=== PATIENT | female | born 1995 | race Caucasian/White ===

== ENCOUNTER 2017-01-05 14:44 | Emergency (ER) | payer OTHER, MEDICAID ==
[~2017-01-05] VITALS: Ht 170.2 cm; Wt 65.0 kg
[~2017-01-05 14:44] MED LIST: ATEN-102 PO; CLOZ100 PO; EXEL4.6D TD; KLON2TAB PO; LEVO.025 PO; LINA290C PO; LOXA5 PO; METF-324 PO; OXYB5TAB10 PO; XANA0.5T PO
[2017-01-05 14:48] VITALS: BP 112/60; PULSE 74; RESP 18; TEMP 97.9; O2SAT 99
[2017-01-05] MEDS ORDERED: LINA290C PO (18:29)
[2017-01-05] MEDS ORDERED: METF1000 PO (18:29)
[2017-01-05] MEDS ORDERED: SYNT25TA PO (18:29)
[2017-01-05] MEDS ORDERED: KLON2TAB PO (18:29)
[2017-01-05] MEDS ORDERED: ATEN50TA PO (18:29)
[2017-01-05] MEDS ORDERED: RIVA9.5T T-DERMAL (18:29)
[2017-01-05] MEDS ORDERED: ALPR.5 PO (18:29)
[2017-01-05] MEDS ORDERED: CYTO5TAB PO (18:29)
[2017-01-05] MEDS ORDERED: LOXA50CA PO (18:29)
[2017-01-05] MEDS ORDERED: CLOZ100 PO (18:29)
[2017-01-05] MEDS ORDERED: FOLI1TAB4 PO (21:30)
== END 2017-01-05 16:27 | disposition left against medical advice (07) ==
LOC: NED 14:44
DX: R68.89 Other general symptoms and signs (principal)
CPT/HCPCS: 99281

== ENCOUNTER 2017-01-05 17:09 | Inpatient (IN) | payer OTHER, MEDICAID, MEDICARE ==
[~2017-01-05] VITALS: Ht 170.2 cm; Wt 51.9 kg
[2017-01-05 17:13] VITALS: BP_SYST 115; BP_SYST 127; BP_DIAS 68; BP_DIAS 77; PULSE 117; PULSE 98; RESP 20; TEMP 98.1; O2SAT 100
--- NOTE | 2017-01-05 17:30 | PD ---
HPI Chief Complaint: Psychiatric Symptoms Time Seen by Provider: 17:24 Travel History International Travel<30 days: No Contact w/Intl Traveler<30days: No Traveled to known affect area: No History of Present Illness HPI Patient's 21-year-old female presents emergency department on Núñez act for bizarre behavior. Patient states she has a history of schizophrenia. She states been taking her medicines. She denies any chest pain abdominal pain nausea vomiting shortness of breath. PFSH Past Medical History ADHD: No Blood Disorders: No Bipolar Disorder: Yes (OR BOARDERLINE PERSONALITY) Weight (Kg): 3 Anxiety: Yes Depression: Yes Heart Rhythm Problems: No High Cholesterol: No Chest Pain: Yes Congestive Heart Failure: No Diabetes: Yes Diminished Hearing: No Endocrine: No Genitourinary: No Hypertension: Yes Immune Disorder: Yes (LUPUS) Implanted Vascular Access Dvce: No Musculoskeletal: No Neurologic: No Psychiatric: Yes (Hx of treatment for Schizophrenia) Reproductive: No Respiratory: No Immunizations Current: Yes Migraines: No Schizophrenia: Yes Sleep Apnea: No Thyroid Disease: Yes Tetanus Vaccination: Unknown ?: Not : 0 Past Surgical History Appendectomy: No Cholecystectomy: No Ear Surgery: No Endocrine Surgery: No Eye Surgery: No Genitourinary Surgery: No Gynecologic Surgery: No Oral Surgery: Yes (TONSILLECTOMY) Tonsillectomy: Yes Other Surgery: Yes (TONSILS AND SURGERY ON RIGHT WRIST ) Social History Alcohol Use: No Tobacco Use: No Substance Use: No Allergies-Medications (Allergen,Severity, Reaction): Coded Allergies: Gluten (Verified Allergy, Severe, 01/05/17) Shellfish (Verified Allergy, Severe, 01/05/17) Tamiflu (Verified Allergy, Severe, Anaphylaxis, 01/05/17) Topamax (Verified Allergy, Severe, Confusion, 01/05/17) Wheat (Verified Allergy, Severe, 01/05/17) Sulfa (Verified Allergy, Mild, Hives, 01/05/17) Uncoded Allergies: RADIATION (Allergy, Severe, Respiratory Failure, 01/05/17) NOTHING RADIOACTIVE-CAUSES COMPROMISED IMMUNE SYSTEM. NO X RAYS, NO CAT SCANS GLUTEN (Allergy, Mild, UNKNOWN, 10/08/09) SHELLFISH (Allergy, Mild, UNKNOWN, 10/08/09) WHEAT (Allergy, Mild, UNKNOWN, 10/08/09) Reported Meds & Prescriptions Reported Meds & Active Scripts Active Reported Folate (Folic Acid) 1 Mg Tab 1 Mg PO DAILY Metformin (Metformin HCl) 1,000 Mg Tab 1,000 Mg PO BIDPC With meals Exelon Patch (Rivastigmine) 9.5 mg/24 hr Patch 1 Patch T-DERMAL DAILY Linzess (Linaclotide) 290 Mcg Cap 290 Mcg PO HS Cytomel (Liothyronine Sodium) 5 Mcg Tab 5 Mcg PO BID Synthroid (Levothyroxine Sodium) 25 Mcg Tab 25 Mcg PO DAILY Atenolol 50 Mg Tab 50 Mg PO BID Xanax (Alprazolam) 0.5 Mg Tab 0.5 Mg PO Q6H PRN Klonopin (Clonazepam) 2 Mg Tab 2 Mg PO TID Loxapine (Loxapine Succinate) 50 Mg Cap 15 Mg PO HS Clozaril (Clozapine) 100 Mg Tab 800 Mg PO HS Review of Systems ROS Limitations: Psychotic Physical Exam Narrative GENERAL: WD/WN but thin build, withdrawn. SKIN: Warm and dry. Head to toe wound check performed with female nurse music librarian and shows no wounds on her head, neck, chest, abdomen, pelvis, extremities. HEAD: Atraumatic. Normocephalic. EYES: Pupils equal and round. No scleral icterus. No injection or drainage. ENT: No nasal bleeding or discharge. Mucous membranes pink and moist. NECK: Trachea midline. No JVD. CARDIOVASCULAR: Regular rate and rhythm. RESPIRATORY: No accessory muscle use. Clear to auscultation. Breath sounds equal bilaterally. GASTROINTESTINAL: Abdomen soft, non-tender, nondistended. Hepatic and splenic margins not palpable. MUSCULOSKELETAL: Extremities without clubbing, cyanosis, or edema. No obvious deformities. NEUROLOGICAL: Awake and alert. No obvious cranial nerve deficits. Motor grossly within normal limits. Five out of 5 muscle strength in the arms and legs. Normal speech. PSYCHIATRIC: Withdrawn, slow to respond. Denies HI, does not answer when asked about SI. Data Data Last Documented VS Vital Signs Date Time Temp Pulse Resp B/P Pulse Ox O2 Delivery O2 Flow Rate FiO2 01/05/17 17:13 98.1 98 20 115/68 100 Orders Complete Blood Count With Diff (01/05/17 17:29) Comprehensive Metabolic Panel (01/05/17 17:29) Ed Urine Pregnancytest Poc (01/05/17 17:29) Psych Screen (01/05/17 17:29) Drug Screen, Random Urine (01/05/17 17:29) Admit Order (Ed Use Only) (01/05/17 21:42) Admit To Inpatient Psych (01/05/17 ) Vital Signs (Adult) MARINA.Q12H.E (01/05/17 21:42) Activity Oob Ad Rossi (01/05/17 21:42) Level Of Observation (Psych) (01/05/17 21:42) Diet 1800 Ada Cons Carb (01/06/17 Breakfast) Complete Blood Count With Diff (01/06/17 06:00) Basic Metabolic Panel (Bmp) (01/06/17 06:00) Lipid Profile (01/06/17 06:00) Hemoglobin (Hgb) A1c (01/06/17 06:00) Consult Hospitalist (01/05/17 ) Labs Laboratory Tests Test 01/05/17 17:45 White Blood Count 6.7 TH/MM3 Red Blood Count 4.21 MIL/MM3 Hemoglobin 12.2 GM/DL Hematocrit 36.6 % Mean Corpuscular Volume 86.8 FL Mean Corpuscular Hemoglobin 29.0 PG Mean Corpuscular Hemoglobin 33.4 % Concent Red Cell Distribution Width 13.5 % Platelet Count 134 TH/MM3 Mean Platelet Volume 11.2 FL Neutrophils (%) (Auto) 54.4 % Lymphocytes (%) (Auto) 35.2 % Monocytes (%) (Auto) 9.7 % Eosinophils (%) (Auto) 0.1 % Basophils (%) (Auto) 0.6 % Neutrophils # (Auto) 3.6 TH/MM3 Lymphocytes # (Auto) 2.4 TH/MM3 Monocytes # (Auto) 0.7 TH/MM3 Eosinophils # (Auto) 0.0 TH/MM3 Basophils # (Auto) 0.0 TH/MM3 CBC Comment DIFF FINAL Differential Comment Sodium Level 143 MEQ/L Potassium Level 4.0 MEQ/L Chloride Level 106 MEQ/L Carbon Dioxide Level 28.7 MEQ/L Anion Gap 8 MEQ/L Blood Urea Nitrogen 13 MG/DL Creatinine 0.70 MG/DL Estimat Glomerular Filtration 104 ML/MIN Rate Random Glucose 87 MG/DL Calcium Level 9.0 MG/DL Total Bilirubin 0.2 MG/DL Aspartate Amino Transf 11 U/L (AST/SGOT) Alanine Aminotransferase 21 U/L (ALT/SGPT) Alkaline Phosphatase 67 U/L Total Protein 7.3 GM/DL Albumin 4.1 GM/DL Urine Opiates Screen NEG Urine Barbiturates Screen NEG Urine Amphetamines Screen NEG Urine Benzodiazepines Screen POS Urine Cocaine Screen NEG Urine Cannabinoids Screen NEG MDM Medical Decision Making Medical Screen Exam Complete: Yes Emergency Medical Condition: Yes Differential Diagnosis Psychosis, schizophrenia, poor social circumstance, substance abuse. Narrative Course Patient seen and examined by me and female nurse present at all time. Patient very slowed speech has history of paranoid schizophrenia. Patient is reluctant to smile for me on neurologic examination. She appears well and has no physical complaints. Fairly withdrawn. She has no medical complaints nor physical exam findings warranting further emergent workup. At this time she is medically cleared for psychiatric evaluation and disposition. SHe is on Núñez Act from [employer]. Diagnosis Primary Impression: Schizophrenia Admitting Information Admitting Physician Requests: Admit Condition: Stable Cleveland Giordano MD Jan 05, 2017 17:30
[2017-01-05 18:00] LABS: AUTOMATED NEUTROPHIL # 3.6 TH/MM3 (1.8-7.7); BASOPHIL % 0.6 % (0.0-2.0); EOSINOPHIL % 0.1 % (0.0-4.0); HEMATOCRIT 36.6 % (35.0-46.0); HEMO FLAGS DIFF FINAL; LYMPH % 35.2 % (9.0-44.0); LYMPHOCYTE # 2.4 TH/MM3 (1.0-4.8); MEAN CELL VOLUME 86.8 FL (80.0-100.0); MEAN CORPUSCULAR HGB CONC 33.4 % (32.0-36.0); MONO % 9.7 % (0.0-8.0); NEUT % 54.4 % (16.0-70.0); PLATELET COUNT 134 TH/MM3 (150-450); RED BLOOD COUNT 4.21 MIL/MM3 (4.00-5.30); RED CELL DISTRIBUTION WIDTH 13.5 % (11.6-17.2); WHITE BLOOD COUNT 6.7 TH/MM3 (4.0-11.0)
[2017-01-05 18:18] LABS: AMPHETAMINE, URINE NEG (NEG); BARBITURATES, URINE NEG (NEG); COCAINE, URINE NEG (NEG)
[2017-01-05 18:28] LABS: ANION GAP 8 MEQ/L (5-15); AST (GOT) 11 U/L (15-37); BICARBONATE 28.7 MEQ/L (21.0-32.0); BLOOD UREA NITROGEN 13 MG/DL (7-18); CHLORIDE 106 MEQ/L (98-107); GLOMERULAR FILTRATION RATE 104 ML/MIN (>89); SODIUM (NA) 143 MEQ/L (136-145)
[2017-01-05] MEDS ORDERED: SYNT25TA PO (18:29)
[2017-01-05] MEDS ORDERED: METF1000 PO (18:29)
[2017-01-05] MEDS ORDERED: LOXA50CA PO (18:29)
[2017-01-05] MEDS ORDERED: CLOZ100 PO (18:29)
[2017-01-05] MEDS ORDERED: RIVA9.5T T-DERMAL (18:29)
[2017-01-05] MEDS ORDERED: ALPR.5 PO (18:29)
[2017-01-05] MEDS ORDERED: LINA290C PO (18:29)
[2017-01-05] MEDS ORDERED: ATEN50TA PO (18:29)
[2017-01-05] MEDS ORDERED: KLON2TAB PO (18:29)
[2017-01-05] MEDS ORDERED: CYTO5TAB PO (18:29)
[2017-01-05 18:31] LABS: ALKALINE PHOSPHATASE 67 U/L (45-117); ALT (GPT) 21 U/L (10-53); TOTAL BILIRUBIN ADULT 0.2 MG/DL (0.2-1.0)
[2017-01-05] MEDS ORDERED: FOLI1TAB4 PO (21:30)
[2017-01-05] MEDS ORDERED: diphenhydrAMINE HCL 50 MG CAP PO PRN (22:00)
[2017-01-05] MEDS ORDERED: LORazepam 2 MG/ML VIAL IM PRN (22:00)
[2017-01-05] MEDS ORDERED: ALUMINUM/MAGNESIUM/SIMETH 30 ML CUP PO PRN (22:00)
[2017-01-05] MEDS ORDERED: LORazepam 1 MG TAB PO PRN (22:00)
[2017-01-05] MEDS ORDERED: MAGNESIUM HYDROXIDE SUSP 30 ML CUP PO PRN (22:00)
[2017-01-05] MEDS ORDERED: diphenhydrAMINE HCL 50 MG/ML VIAL - HS PRN IM (22:00)
[2017-01-05] MEDS ORDERED: diphenhydrAMINE HCL 50 MG/ML VIAL IM PRN (22:00)
[2017-01-05] MEDS ORDERED: cloZAPine 100 MG TAB PO SCH (22:06)
[2017-01-05] MEDS ORDERED: LOXAPINE 5 MG CAP PO SCH (22:07)
[2017-01-05] MEDS: ATENOLOL 50 MG TAB PO SCH (22:08)
[2017-01-05] MEDS ORDERED: ALPRAZolam 0.5 MG TAB PO PRN (22:15)
[2017-01-05 22:26] VITALS: BP 103/63; PULSE 78; RESP 17; O2SAT 100
[2017-01-05 23:15] VITALS: BP 98/56; PULSE 94; RESP 18; TEMP 97.9; O2SAT 99
[2017-01-06] MEDS: LIOTHYRONINE SODIUM 5 MCG TAB PO SCH ×2 (05:37→16:17)
[2017-01-06 05:42] VITALS: BP 90/54; PULSE 79; RESP 16; TEMP 97.6; O2SAT 99
[2017-01-06] MEDS ORDERED: LEVOTHYROXINE SODIUM 25 MCG TAB PO SCH (06:00)
[2017-01-06 07:05] LABS: AUTOMATED NEUTROPHIL # 1.9 TH/MM3 (1.8-7.7); BASOPHIL % 0.8 % (0.0-2.0); EOSINOPHIL % 0.2 % (0.0-4.0); HEMATOCRIT 36.5 % (35.0-46.0); HEMO FLAGS DIFF FINAL; LYMPH % 39.5 % (9.0-44.0); LYMPHOCYTE # 1.6 TH/MM3 (1.0-4.8); MEAN CELL VOLUME 86.3 FL (80.0-100.0); MEAN CORPUSCULAR HEMOGLOBIN 29.6 PG (27.0-34.0); MEAN CORPUSCULAR HGB CONC 34.3 % (32.0-36.0); MONO % 12.6 % (0.0-8.0); NEUT % 46.9 % (16.0-70.0); PLATELET COUNT 122 TH/MM3 (150-450); RED BLOOD COUNT 4.23 MIL/MM3 (4.00-5.30); RED CELL DISTRIBUTION WIDTH 13.6 % (11.6-17.2); WHITE BLOOD COUNT 4.1 TH/MM3 (4.0-11.0)
[2017-01-06 07:39] LABS: ANION GAP 8 MEQ/L (5-15); BICARBONATE 27.5 MEQ/L (21.0-32.0); BLOOD UREA NITROGEN 16 MG/DL (7-18); CHLORIDE 108 MEQ/L (98-107); GLOMERULAR FILTRATION RATE 117 ML/MIN (>89); HDL CHOLESTEROL 53.5 MG/DL (40.0-60.0); LDL CHOLESTEROL 95 MG/DL (0-99); POTASSIUM 3.9 MEQ/L (3.5-5.1); SODIUM (NA) 143 MEQ/L (136-145)
[2017-01-06] MEDS ORDERED: FOLIC ACID 1 MG TAB PO SCH (09:00)
[2017-01-06] MEDS: ATENOLOL 50 MG TAB PO SCH (09:00)
[2017-01-06 10:33] LABS: FREE T4 0.84 NG/DL (0.76-1.46)
--- NOTE | 2017-01-06 13:44 | HHI.HP ---
Provisional Diagnosis Admission Date Jan 05, 2017 at 21:46 Elsie I. Schizoaffective disorder bipolar type F 25.0, generalized anxiety disorder F 41.1 Certification of Person's Competence To Provide Express and Informed Consent I have personally examined Kathia Mobley , a person being served at [facility] on, Jan 06, 2017 13:28. Express and informed consent means consent voluntarily given in writing, by a competent person, after sufficient explanation and disclosure of the subject matter involved to enable the person to make a knowing and willful decision without any element of force, fraud, deceit, duress, or other form of constraint or coercion. This person is 18 years of age or older, is not now known to be incompetent to consent to treatment with a guardian advocate, and does not have a health care surrogate or proxy currently making medical treatment decisions. I have found this person to be one of the following: x[] Competent to provide express and informed consent, as defined above, for voluntary admission to this facility and is competent to provide express and informed consent for treatment. He/she has the consistent capacity to make well reasoned, willful, and knowing decisions concerning his or her medical or mental health treatment. The person fully and consistently understands the purpose of the admission for examination/placement and is fully capable of personally exercising all rights assured [place] Incompetent to provide express and informed consent to voluntary admission, and this is incompetent to provide express and informed consent to treatment. The person must be transferred to involuntary status and a petition for a guardian advocate filed with the Circuit Court. [] Refusing to provide express and informed consent to voluntary admission but is competent to provide express and informed consent for treatment. The person must be discharged or transferred to involuntary status. Form shall be completed within 24 hours of a person's arrival at the receiving facility and filed in the clinical record of each person: 1. Admitted on a voluntary basis 2. Permitted to provide express and informed consent to his/her own treatment 3. Allowed to transfer from involuntary to voluntary status 4. Prior to permitting a person to consent to his or her own treatment after having been previously found incompetent to consent to treatment. History of Present Illness Capacity: Has Capacity HPI Patient is a 21-year-old white female well-known post multiple prior contacts comes here under Nú[place]ez act by the [place] [employer] dated 01/10/17 at 4:48 PM Núñez act reviewed and states that the patient had threatened to kill herself to her mother without giving any idea of how she would do it. Patient seen screened in ED urine toxicology positive for benzodiazepines negative for alcohol. Patient lives at home with her mother and pet dog. She has had a long history mental health issues going back to about 12-13 years old with multiple psychiatric hospitalizations history of suicidal thoughts and self mutilating behavior. Patient seen by a local psychiatrist and Dr. Beltrán was ordered various medications. Patient is unilaterally decreased her Loxitane from 15 mg 4 times a day to once a day. This appears to have led to increase auditory hallucinations of multiple voices quite threatening and insulting to her frightening to her telling her to kill herself. Patient also noted increase in her anxiety related to this. Though she states she has been compliant with her other medications except for the Loxitane. Patient states she has no significant social life he basically stays home is not dating. She never graduated high school stating she was hospitalized multiple 1 time for jumping off a building patient's last hospitalization here was in April 2016. There is a history of mental health issues with her family stating that sister have bipolar disorder. Patient denies any alcohol or other substances of abuse. At the present time patient meets criteria for acute inpatient psychiatric hospitalization. By feel she has capacity to sign her admission and is sign for medications thus I will lift the Nú[place]ez act allow her to do so. We will continue her Loxitane 15 mg 4 times a day, her Klonopin 2 mg 3 times a day and her Xanax 0.5 mg every 6 hours when necessary. We'll also continue her other medical medications are to have the hospitalist consulting with us. Hopefully this will be a fairly short stay and patient can return to her family to follow- up outpatient Review of Systems Constitutional: DENIES: Diaphoretic episodes, Fatigue, Fever, Weight gain, Weight loss, Chills, Dizziness, Change in appetite, Night Sweats Endocrine: DENIES: Abnorml menstrual pattern, Heat/cold intolerance, Polydipsia , Polyuria, Polyphagia Eyes: DENIES: Blurred vision, Diplopia, Eye inflammation, Eye pain, Vision loss , Photosensitivity, Double Vision Ears, nose, mouth, throat: DENIES: Tinnitus, Hearing loss, Vertigo, Nasal discharge, Oral lesions, Throat pain, Hoarseness, Ear Pain, Running Nose, Epistaxis, Sinus Pain, Toothache, Odynophagia Respiratory: DENIES: Apneas, Cough, Snoring, Wheezing, Hemoptysis, Sputum production, Shortness of breath Cardiovascular: DENIES: Chest pain, Palpitations, Syncope, Dyspnea on Exertion , PND, Lower Extremity Edema, Orthopnea, Claudication Gastrointestinal: DENIES: Abdominal pain, Black stools, Bloody stools, Constipation, Diarrhea, Nausea, Vomiting, Difficulty Swallowing, Anorexia Genitourinary: DENIES: Abnormal vaginal bleeding, Dysmenorrhea, Dyspareunia, Sexual dysfunction, Urinary frequency, Urinary incontinence, Urgency, Hematuria , Dysuria, Nocturia, Vaginal discharge Musculoskeletal: DENIES: Joint pain, Muscle aches, Stiffness, Joint Swelling, Back pain, Neck pain Integumentary: DENIES: Abnormal pigmentation, Pruritus, Rash, Nail changes, Breast masses, Breast skin changes, Nipple discharge Hematologic/lymphatic: DENIES: Bruising, Lymphadenopathy Immunologic/allergic: DENIES: Eczema, Urticaria Neurologic: DENIES: Abnormal gait, Headache, Localized weakness, Paresthesias, Seizures, Speech Problems, Tremor, Poor Balance Psychiatric: COMPLAINS OF: Anxiety, Hallucinations, Suicidal Ideation Past Psych History Psychological trauma history Denies any past physical or sexual abuse Violence risk - others (6 mos) Low Violence risk - self (6 mos) Patient has long history of self mutilation with suicidal ideation related to command auditory hallucinations Substance Abuse History Drugs/Alcohol past 12 months Denies Past Family Social History Coded Allergies: Gluten (Verified Allergy, Severe, 01/05/17) Shellfish (Verified Allergy, Severe, 01/05/17) Tamiflu (Verified Allergy, Severe, Anaphylaxis, 01/05/17) Topamax (Verified Allergy, Severe, Confusion, 01/05/17) Wheat (Verified Allergy, Severe, 01/05/17) Sulfa (Verified Allergy, Mild, Hives, 01/05/17) Uncoded Allergies: RADIATION (Allergy, Severe, Respiratory Failure, 01/05/17) NOTHING RADIOACTIVE-CAUSES COMPROMISED IMMUNE SYSTEM. NO X RAYS, NO CAT SCANS GLUTEN (Allergy, Mild, UNKNOWN, 10/08/09) SHELLFISH (Allergy, Mild, UNKNOWN, 10/08/09) WHEAT (Allergy, Mild, UNKNOWN, 10/08/09) Past Medical History Patient cleared in ED Reported Medications Folic Acid (Folate)1 Mg Tab1 Mg PO DAILY Ref 0 01/05/17 Metformin 1,000 Mg Tab1,000 Mg PO BIDPC #60 TAB Ref 0 With meals 01/05/17 Rivastigmine Patch (Exelon Patch)9.5 mg/24 hr Patch1 Patch T-DERMAL DAILY #30 PATCH Ref 0 01/05/17 Linaclotide (Linzess)290 Mcg [id number] Mcg PO HS Ref 0 01/05/17 Liothyronine (Cytomel)5 Mcg Tab5 Mcg PO BID #30 TAB Ref 0 01/05/17 Levothyroxine (Synthroid)25 Mcg Tab25 Mcg PO DAILY #30 TAB Ref 0 01/05/17 Atenolol 50 Mg Tab50 Mg PO BID #14 TAB Ref 0 01/05/17 Alprazolam (Xanax)0.5 Mg Tab0.5 Mg PO Q6H PRN (ANXIETY) Ref 0 01/05/17 Clonazepam (Klonopin)2 Mg Tab2 Mg PO TID #90 TAB Ref 0 01/05/17 Clozapine (Clozaril)100 Mg [id number] Mg PO HS Ref 0 01/05/17 Discontinued Reported Medications Loxapine 50 Mg Cap15 Mg PO HS #30 CAP Ref 0 01/05/17 Clonazepam (Klonopin)2 Mg Tab2 Mg PO TID 04/20/16 Linaclotide (Linzess)290 Mcg [id number] Mcg PO 04/20/16 Atenolol 50 Mg Tab50 Mg PO DAILY 04/20/16 Alprazolam (Xanax 0.5 mg)Alprazolam 0.5 mg Tab1 Tab PO Q6H PRN (ANXIETY) 04/20/16 Clozapine (Clozaril 100 Mg Tab)100 Mg [id number] Mg PO HS 04/20/16 RIVASTIGMINE Patch (Exelon Patch)4.6 Mg/24 Hrs Patch1 Patch TD DAILY 04/20/16 Metformin ER 24 HR 1,000 Mg Tab1,000 Mg PO BIDPC 08/03/14 Discontinued Scripts Oxybutynin (Ditropan)5 Mg Tab5 Mg PO Q12HR #60 TAB Ref 6 Prov:Ramsey Bonilla MD 09/04/16 Levothyroxine Sodium 25 Mcg Tab25 Mcg PO DAILY@06 15 Days Ref 1 Prov:Alfredo Prather MD 04/30/16 Loxapine Succinate 5 Mg Cap15 Mg PO QID 15 Days Ref 1 Prov:Alfredo Prather MD 04/30/16 Current Medications Medications (Trade) Dose Ordered Sig/Ady Route Start Time Stop Time Status Last Admin (Benadryl) 50 mg HS PRN PO 01/05/17 22:00 (Desyrel) 50 mg HS PRN PO 01/05/17 22:00 (Tylenol) 650 mg Q4H PRN PO 01/05/17 22:00 (Milk Of Magnesia Liq) 30 ml DAILY PRN PO 01/05/17 22:00 (Mag-Al Plus Susp Liq) 30 ml Q6H PRN PO 01/05/17 22:00 (Clozaril) 800 mg HS PO 01/05/17 22:06 01/05/17 22:06 (Loxitane) 15 mg HS PO 01/05/17 22:07 01/05/17 22:07 (Xanax) 0.5 mg Q6H PRN PO 01/05/17 22:15 01/05/17 22:07 (Tenormin) 50 mg BID PO 01/05/17 22:08 (Synthroid) 25 mcg DAILY@06 PO 01/06/17 06:00 01/06/17 05:37 (Cytomel) 5 mcg BID@06,16 PO 01/06/17 06:00 01/06/17 05:37 Patient Own Medication PT OWN MED: LINACLOT... HS PO 01/06/17 21:00 Future Hold (Folate) 1 mg DAILY PO 01/06/17 09:00 01/06/17 09:00 Family History Patient has sister who is mentally ill Social History Patient lives with mother has no significant socialization Patient's Strengths (min. 2) Patient verbal able access healthcare cooperative Physical Exam Patient seen screened in ED exam reviewed and agreed with vital signs blood pressure 90/54 pulse 79 respirations 16 Vital Signs Vital Signs Date Time Temp Pulse Resp B/P Pulse Ox O2 Delivery O2 Flow Rate FiO2 01/06/17 05:42 97.6 79 16 90/54 99 01/05/17 22:26 Room Air Mental Status Examination Alert oriented then slender white female long dark hair with glasses sitting is somewhat anxious and into focusing on her medications, guarded in her responses with poor to fair eye contact Appearance Somewhat disheveled Speech: Unremarkable Orientation: x3 Memory: Unremarkable Thought Process: Logical Thought Content: Bizarre thinking, Paranoid Hallucination Type: Auditory (multiple loud command in nature threatening) Attention and Concentration: Other (they are) Suicidal Ideation: Yes (some suicidal ideation secondary to command nature of voices) Previous Suicide Attempts: Yes (SEVERAL PREVIOUS SUICIDE ATTEMPTS) Homicidal Ideation: No Previous Homicide Attempts: No Insight: Fair Judgement: Poor Affect: Other (slight decrease range increase intensity) Mood: Sad Motor Activity: Normal gait Assessment & Plan Problem List: (1) Schizoaffective disorder ICD Code: F25.9 (2) Generalized anxiety disorder ICD Code: F41.1 Assessment & Plan Estimated LOS: days at this time I feel patient does meet criteria for inpatient psychiatric hospitalization, but also approaches capacity to make decisions concerning her admission and treatment thus I will lift the N[place]ez act allow her sign voluntary will continue medications per the med reconciliation. Of with fairly short stay patient return to her home Discharge Planning To be determined Problem Qualifiers (1) Schizoaffective disorder: Qualified Code: F25.0 - Schizoaffective disorder, bipolar type Daniele Ku MD Jan 06, 2017 13:44
--- NOTE | 2017-01-06 15:27 | PD.CONS ---
[facility] By [facility]ry team Reason for Consult Medical management diabetes, tachycardia, hypothyroidism Primary Care Physician No Primary Care Physician Diagnoses: History of Present Illness Patient is a 20-year-old female with primary medical history of DM 2, tachycardia, memory problems, hypothyroidism who came in under [place] act for desire behavior. She is now admitted to inpatient psychiatry unit for further evaluation. Consulted for medical management. Patient seen today. States she is having a headache, reported to be okay to over 10, mostly in the frontal area, described as a band of tightness, unrelieved by rest, also feeling nauseous but no vomiting. Reports history of migraine headaches taking Topamax and was also given Keppra previously. States she is following neurology in the area however she cannot name the neurologist. Verified other medical history including DM 2, tachycardia, hypothyroidism, migraine headaches. Otherwise, denies SOB/ dyspnea. Denies chest pain, palpitations, headaches, dizziness. Denies fevers, chills, v/d. Review of Systems Except as stated in HPI: all other systems reviewed are Neg Past Family Social History Allergies: Coded Allergies: Gluten (Verified Allergy, Severe, 01/05/17) Shellfish (Verified Allergy, Severe, 01/05/17) Tamiflu (Verified Allergy, Severe, Anaphylaxis, 01/05/17) Wheat (Verified Allergy, Severe, 01/05/17) Sulfa (Verified Allergy, Mild, Hives, 01/05/17) Uncoded Allergies: RADIATION (Allergy, Severe, Respiratory Failure, 01/05/17) NOTHING RADIOACTIVE-CAUSES COMPROMISED IMMUNE SYSTEM. NO X RAYS, NO CAT SCANS GLUTEN (Allergy, Mild, UNKNOWN, 10/08/09) SHELLFISH (Allergy, Mild, UNKNOWN, 10/08/09) WHEAT (Allergy, Mild, UNKNOWN, 10/08/09) Past Medical History DM 2 Tachycardia Memory problems Hypothyroidism Migraine headaches Anxiety Depression Lupus HTN Schizophrenia Past Surgical History Tonsillectomy Right wrist surgery Reported Medications Folate (Folic Acid) 1 Mg Tab 1 Mg PO DAILY Metformin (Metformin HCl) 1,000 Mg Tab 1,000 Mg PO BIDPC With meals Exelon Patch (Rivastigmine) 9.5 mg/24 hr Patch 1 Patch T-DERMAL DAILY Linzess (Linaclotide) 290 Mcg Cap 290 Mcg PO HS Cytomel (Liothyronine Sodium) 5 Mcg Tab 5 Mcg PO BID Synthroid (Levothyroxine Sodium) 25 Mcg Tab 25 Mcg PO DAILY Atenolol 50 Mg Tab 50 Mg PO BID Xanax (Alprazolam) 0.5 Mg Tab 0.5 Mg PO Q6H PRN Klonopin (Clonazepam) 2 Mg Tab 2 Mg PO TID Loxapine (Loxapine Succinate) 50 Mg Cap 15 Mg PO HS Clozaril (Clozapine) 100 Mg Tab 800 Mg PO HS Active Ordered Medications Current Medications Medications (Trade) Dose Ordered Sig/Ady Route Start Time Stop Time Status Last Admin (Benadryl) 50 mg HS PRN PO 01/05/17 22:00 (Desyrel) 50 mg HS PRN PO 01/05/17 22:00 (Tylenol) 650 mg Q4H PRN PO 01/05/17 22:00 (Milk Of Magnesia Liq) 30 ml DAILY PRN PO 01/05/17 22:00 (Mag-Al Plus Susp Liq) 30 ml Q6H PRN PO 01/05/17 22:00 (Cytomel) 5 mcg BID@06,16 PO 01/06/17 06:00 01/06/17 05:37 Patient Own Medication PT OWN MED: LINACLOT... HS PO 01/06/17 21:00 Future Hold (Loxitane) 15 mg QID PO 01/06/17 18:00 (KlonoPIN) 2 mg TID PO 01/06/17 18:00 (Xanax) 0.5 mg Q6H PRN PO 01/06/17 13:30 (Clozaril) 800 mg HS PO 01/06/17 21:00 (Folate) 1 mg DAILY PO 01/07/17 09:00 (Synthroid) 25 mcg DAILY@0600 PO 01/07/17 06:00 (Glucophage) 1,000 mg BIDPC PO 01/06/17 18:00 (Exelon 9.5 Mg Patch.24hr) 1 patch DAILY T-DERMAL 01/07/17 09:00 Miscellaneous Information 1 DAILY TD 01/08/17 09:00 Family History Family history of diabetes Social History Patient is single. Denies alcohol use Denies tobacco use Denies illicit drug use Physical Exam Vital Signs Vital Signs Date Time Temp Pulse Resp B/P Pulse Ox O2 Delivery O2 Flow Rate FiO2 01/06/17 05:42 97.6 79 16 90/54 99 01/05/17 23:15 97.9 94 18 98/56 99 01/05/17 22:26 78 17 103/63 100 Room Air 01/05/17 17:13 98.1 98 20 115/68 100 Physical Exam GENERAL: This is a thin-appearing, well-developed patient, in no apparent distress. SKIN: No rashes, ecchymoses or lesions. Cool and dry. HEAD: Atraumatic. Normocephalic. No temporal or scalp tenderness. EYES: Pupils equal round and reactive. Extraocular motions intact. No scleral icterus. No injection or drainage. ENT: Nose without bleeding. Throat without erythema. Uvula midline. Airway patent. NECK: Trachea midline. No JVD or lymphadenopathy. Supple, nontender, no meningeal signs. CARDIOVASCULAR: Regular rate and rhythm without murmurs, gallops, or rubs. RESPIRATORY: Clear to auscultation. Breath sounds equal bilaterally. No wheezes , rales, or rhonchi. GASTROINTESTINAL: Abdomen soft, non-tender, nondistended. Bowel sounds active 4 MUSCULOSKELETAL: Extremities without clubbing, cyanosis, or edema. NEUROLOGICAL: Awake and alert. Able to follow commands. Oriented. Motor and sensory grossly within normal limits. Normal speech. Laboratory Laboratory Tests Test 01/05/17 01/06/17 01/06/17 17:45 06:37 06:57 White Blood Count 6.7 4.1 Red Blood Count 4.21 4.23 Hemoglobin 12.2 12.5 Hematocrit 36.6 36.5 Mean Corpuscular Volume 86.8 86.3 Mean Corpuscular Hemoglobin 29.0 29.6 Mean Corpuscular Hemoglobin 33.4 34.3 Concent Red Cell Distribution Width 13.5 13.6 Platelet Count 134 122 Mean Platelet Volume 11.2 11.0 Neutrophils (%) (Auto) 54.4 46.9 Lymphocytes (%) (Auto) 35.2 39.5 Monocytes (%) (Auto) 9.7 12.6 Eosinophils (%) (Auto) 0.1 0.2 Basophils (%) (Auto) 0.6 0.8 Neutrophils # (Auto) 3.6 1.9 Lymphocytes # (Auto) 2.4 1.6 Monocytes # (Auto) 0.7 0.5 Eosinophils # (Auto) 0.0 0.0 Basophils # (Auto) 0.0 0.0 CBC Comment DIFF FINAL DIFF FINAL Differential Comment Sodium Level 143 143 Potassium Level 4.0 3.9 Chloride Level 106 108 Carbon Dioxide Level 28.7 27.5 Anion Gap 8 8 Blood Urea Nitrogen 13 16 Creatinine 0.70 0.63 Estimat Glomerular Filtration 104 117 Rate Random Glucose 87 97 Calcium Level 9.0 8.6 Total Bilirubin 0.2 Aspartate Amino Transf 11 (AST/SGOT) Alanine Aminotransferase 21 (ALT/SGPT) Alkaline Phosphatase 67 Total Protein 7.3 Albumin 4.1 Urine Opiates Screen NEG Urine Barbiturates Screen NEG Urine Amphetamines Screen NEG Urine Benzodiazepines Screen POS Urine Cocaine Screen NEG Urine Cannabinoids Screen NEG Triglycerides Level 54 Cholesterol Level 159 LDL Cholesterol 95 HDL Cholesterol 53.5 Cholesterol/HDL Ratio 2.97 Free Thyroxine 0.84 Thyroid Stimulating Hormone 0.915 3rd Gen Result Diagram: 01/06/17 0657 01/06/17 0637 Assessment and Plan Problem List: (1) Schizoaffective disorder ICD Code: F25.9 Status: Acute (2) Schizophrenia ICD Code: F20.9 Status: Acute (3) Hypothyroidism ICD Code: E03.9 Status: Acute (4) DM2 (diabetes mellitus, type 2) ICD Code: E11.9 Status: Chronic (5) Migraine ICD Code: G43.909 Status: Acute Assessment and Plan Patient is a 20-year-old female with primary medical history of DM 2, tachycardia, memory problems, hypothyroidism who came in under [place] act for desire behavior. She is now admitted to inpatient psychiatry unit for further evaluation. Consulted for medical management. HTN, tachycardia - on atenolol 50 mg twice a day. However, BP is in the 90s. Patient states she always has low blood pressure. - Will decrease dose of atenolol to 25 twice a day. Monitor BP and heart rate. DM 2 - check hemoglobin A1c - Restart metformin 1000 mg twice a day Hypothyroidism - check TSH, T4 - Restart medication Synthroid 25 g, Cytomel 5 g twice a day Migraine - sumatriptan 1 dose now, Patient states she was previously taking Topamax 50 mg twice a day, however this part of her allergy/adverse reaction medication. - Zofran for nausea Patient has memory problems, has undergone ECT - restart Exelon patch DVT prop ambulatory Thank you for this consultation. We will follow patient with you. Written by Tyrone Haines, acting as scribe for Dr. Link on 01/06/17 at 14: 55. Code Status Full code Discussed Condition With Patient, nursing Attending Statement All or portions of this note were transcribed by scribe Sunni Haines. I, Dr. Carmine Avendano personally performed the history, physical exam, and medical decision making; and confirmed the accuracy of the information in the transcribed note. Authenticated by Dr. Carmine Avendano on 01/10/17 at 14:44. Problem Qualifiers (1) Schizoaffective disorder: Qualified Code: F25.0 - Schizoaffective disorder, bipolar type Tyrone Hernandez Jan 06, 2017 15:27 Carmine Strauss MD Jan 10, 2017 14:44
[2017-01-06] MEDS ORDERED: SUMAtriptan SUCCINATE 25 MG TAB PO ONE (15:30)
[2017-01-06] MEDS ORDERED: ONDANSETRON ODT 4 MG TAB PO PRN (15:30)
[2017-01-06] MEDS: ALPRAZolam 0.5 MG TAB PO PRN (16:18)
[2017-01-06 16:42] LABS: HEMOGLOBIN A1a 0.9 %; HEMOGLOBIN A1b 0.7 %; HEMOGLOBIN F 0.9 %; HEMOGLOBIN LA1C 1.8 %; HEMOGLOBIN P3 3.3 %
[2017-01-06] MEDS ORDERED: clonazePAM 1 MG TAB PO SCH (18:00)
[2017-01-06] MEDS: clonazePAM 1 MG TAB PO SCH (18:17)
[2017-01-06] MEDS: metFORMIN HCL 500 MG TAB PO SCH (18:17)
[2017-01-06] MEDS: LOXAPINE 5 MG CAP PO SCH ×2 (18:18→21:17)
[2017-01-06] MEDS ORDERED: LIOTHYRONINE SODIUM 5 MCG TAB PO SCH (21:00)
[2017-01-06] MEDS ORDERED: NON-FORMULARY DRUG (Linaclotide (Linzess) 290 MCG) PO SCH (21:00)
[2017-01-06] MEDS ORDERED: ATENOLOL 50 MG TAB PO SCH (21:00)
[2017-01-06] MEDS ORDERED: LINACLOTIDE 290 MCG PO SCH (21:00)
[2017-01-06] MEDS: ATENOLOL 25 MG TAB PO SCH (21:00)
[2017-01-06] MEDS ORDERED: LINZESS PO SCH (21:00)
[2017-01-06] MEDS: cloZAPine 100 MG TAB PO SCH (21:18)
[2017-01-06] MEDS: traZODone HCL 50 MG TAB PO PRN (21:18)
[2017-01-06 21:52] VITALS: BP 108/54; PULSE 93; TEMP 98.2; O2SAT 99
[2017-01-07 05:56] VITALS: BP 103/64; PULSE 66; RESP 18; TEMP 98.2; O2SAT 96
[2017-01-07] MEDS: LEVOTHYROXINE SODIUM 25 MCG TAB PO SCH (06:03)
[2017-01-07] MEDS: LIOTHYRONINE SODIUM 5 MCG TAB PO SCH ×2 (06:04→16:39)
[2017-01-07] MEDS: ATENOLOL 25 MG TAB PO SCH ×2 (09:00→21:24)
[2017-01-07] MEDS: metFORMIN HCL 500 MG TAB PO SCH ×2 (09:38→18:03)
[2017-01-07] MEDS: clonazePAM 1 MG TAB PO SCH ×3 (09:39→18:03)
[2017-01-07] MEDS: LOXAPINE 5 MG CAP PO SCH ×3 (09:39→21:24)
[2017-01-07] MEDS: RIVASTIGMINE 9.5 MG/24 HOUR PATCH T-DERMAL SCH (09:40)
[2017-01-07] MEDS: FOLIC ACID 1 MG TAB PO SCH (09:43)
--- NOTE | 2017-01-07 12:26 | HHI.PYPN ---
Subjective Remarks Patient continues to report auditory hallucinations which are upsetting to her and tell her to harm herself. She admits to having thoughts of harming herself but verbally contracts for safety. She is requesting an increased dose of loxapine and wants to take it 4 times per day in addition to Clozaril. Objective Alert: Yes [place]: Person, Place, Date, Situation Mood: Anxious Affect: Restricted Memory Intact: Immediate, Recent, Remote Hallucinations: Auditory Delusions: No Delusion Type: Other Suicidal: Ideation Homicidal: Ideation Insight/Judgement Impaired. Vitals/IOs Vital Signs Date Time Temp Pulse Resp B/P Pulse Ox O2 Delivery O2 Flow Rate FiO2 01/07/17 05:56 98.2 66 18 103/64 96 01/05/17 22:26 Room Air Assessment & Plan Problem List: (1) Schizoaffective disorder ICD Code: F25.9 (2) Generalized anxiety disorder ICD Code: F41.1 Assessment & Plan Estimated LOS: 7 days will titrate the dose of loxapine per the patient's request and this physician's opinion that her auditory hallucinations are not under control. She is anxious and suicidal. Justification for Cont. Inpt. Patient is psychotic, unable to care for herself and a danger to harming herself. Problem Qualifiers (1) Schizoaffective disorder: Qualified Code: F25.0 - Schizoaffective disorder, bipolar type García Araya MD Jan 07, 2017 12:26
[2017-01-07] MEDS ORDERED: LOXAPINE 25 MG CAP PO SCH (13:00)
[2017-01-07] MEDS: ACETAMINOPHEN 325 MG TAB PO PRN (18:03)
[2017-01-07 18:47] VITALS: BP 93/55; PULSE 122; RESP 16; TEMP 97.9; O2SAT 98
[2017-01-07] MEDS: cloZAPine 100 MG TAB PO SCH (21:23)
[2017-01-07] MEDS: traZODone HCL 50 MG TAB PO PRN (21:25)
[2017-01-08 05:19] VITALS: BP 86/47; PULSE 90; RESP 16; TEMP 97.5; O2SAT 98
[2017-01-08] MEDS: LEVOTHYROXINE SODIUM 25 MCG TAB PO SCH (05:31)
[2017-01-08] MEDS: LIOTHYRONINE SODIUM 5 MCG TAB PO SCH ×2 (05:31→15:09)
[2017-01-08 05:58] VITALS: BP 86/47; PULSE 96; RESP 16; TEMP 97.5; O2SAT 98
[2017-01-08] MEDS: metFORMIN HCL 500 MG TAB PO SCH ×2 (08:14→17:40)
[2017-01-08] MEDS: RIVASTIGMINE 9.5 MG/24 HOUR PATCH T-DERMAL SCH (08:14)
[2017-01-08] MEDS: ATENOLOL 25 MG TAB PO SCH ×2 (08:14→21:00)
[2017-01-08] MEDS: clonazePAM 1 MG TAB PO SCH ×3 (08:14→17:40)
[2017-01-08] MEDS: LOXAPINE 5 MG CAP PO SCH ×4 (08:14→21:13)
[2017-01-08] MEDS: FOLIC ACID 1 MG TAB PO SCH (08:14)
[2017-01-08] MEDS: REMOVE OLD PATCH TD SCH (08:36)
[2017-01-08] MEDS: ACETAMINOPHEN 325 MG TAB PO PRN (09:54)
--- NOTE | 2017-01-08 11:02 | HHI.PYPN ---
Subjective Remarks Patient woke up this morning requesting this physician increased the dose of her Loxitane. She appeared not to recall this physician increased the dose yesterday upon her request. She remains flat and restricted, paranoid and depressed. She continues to report suicidal thinking. She remains at risk for self-harm. Review of Systems ROS Limitations: Clinical Condition Except as stated in HPI: all other systems reviewed are Neg Objective Alert: Yes [place]: Person, Place, Date Mood: Anxious, Depressed Affect: Restricted Memory Intact: Immediate, Remote Hallucinations: Auditory Delusions: Yes Delusion Type: Paranoid, Other Suicidal: Ideation Homicidal: Ideation Insight/Judgement Significantly impaired. Vitals/IOs Vital Signs Date Time Temp Pulse Resp B/P Pulse Ox O2 Delivery O2 Flow Rate FiO2 01/08/17 05:58 97.5 96 16 86/47 98 01/05/17 22:26 Room Air Assessment & Plan Problem List: (1) Schizoaffective disorder ICD Code: F25.9 (2) Generalized anxiety disorder ICD Code: F41.1 Assessment & Plan Estimated LOS: 3 days patient continues to be at significant risk for self-harm with ongoing suicidal ideation and plans to overdose. As this physician recently increased her Loxitane, it is important we continue to monitor her for her response. She is unable to care for herself at this point and requires further medication stabilization. Justification for Cont. Inpt. Ongoing suicidal thinking with plans. Problem Qualifiers (1) Schizoaffective disorder: Qualified Code: F25.0 - Schizoaffective disorder, bipolar type García Araya MD Jan 08, 2017 11:02
--- NOTE | 2017-01-08 11:40 | HHI.PR ---
Subjective Remarks Follow-up visit migraine headaches, DM 2, tachycardia, hypothyroidism. patient seen today. Continues to complain of migraine headaches. States that she's been taking Topamax 50 mg twice a day before. Verified with patient that she is not allergic to Topamax she has been taking it. States she did not receive any sumatriptan that was previously ordered. Headache is described as frontal area, sharp, achy, dull, 7/10, unrelieved by Tylenol and rest, associated with some nausea. Denies chest pain, palpitations. Denies fevers, chills, vomiting , diarrhea. Objective Vitals Vital Signs Date Time Temp Pulse Resp B/P Pulse Ox O2 Delivery O2 Flow Rate FiO2 01/08/17 05:58 97.5 96 16 86/47 98 01/08/17 05:19 97.5 90 16 86/47 98 01/07/17 18:47 97.9 122 16 93/55 98 Result Diagram: 01/06/17 0657 01/06/17 0637 Objective Remarks GENERAL: This is a thin-appearing, well-developed patient, in no apparent distress. SKIN: No rashes, ecchymoses or lesions. Cool and dry. HEAD: Atraumatic. Normocephalic. No temporal or scalp tenderness. EYES: Pupils equal round and reactive. Extraocular motions intact. No scleral icterus. No injection or drainage. ENT: Nose without bleeding. Throat without erythema. Uvula midline. Airway patent. NECK: Trachea midline. No JVD or lymphadenopathy. Supple, nontender, no meningeal signs. CARDIOVASCULAR: Regular rate and rhythm without murmurs, gallops, or rubs. RESPIRATORY: Clear to auscultation. Breath sounds equal bilaterally. No wheezes , rales, or rhonchi. GASTROINTESTINAL: Abdomen soft, non-tender, nondistended. Bowel sounds active 4 MUSCULOSKELETAL: Extremities without clubbing, cyanosis, or edema. NEUROLOGICAL: Awake and alert. Able to follow commands. Oriented. Motor and sensory grossly within normal limits. Normal Medications and IVs Current Medications Medications (Trade) Dose Ordered Sig/Ady Route Start Time Stop Time Status Last Admin (Benadryl) 50 mg HS PRN PO 01/05/17 22:00 (Desyrel) 50 mg HS PRN PO 01/05/17 22:00 01/07/17 21:25 (Tylenol) 650 mg Q4H PRN PO 01/05/17 22:00 01/08/17 09:54 (Milk Of Magnesia Liq) 30 ml DAILY PRN PO 01/05/17 22:00 (Mag-Al Plus Susp Liq) 30 ml Q6H PRN PO 01/05/17 22:00 (Cytomel) 5 mcg BID@06,16 PO 01/06/17 06:00 01/08/17 15:09 Patient Own Medication PT OWN MED: LINACLOT... HS PO 01/06/17 21:00 Hold (KlonoPIN) 2 mg TID PO 01/06/17 18:00 01/08/17 12:17 (Xanax) 0.5 mg Q6H PRN PO 01/06/17 13:30 01/06/17 16:18 (Clozaril) 800 mg HS PO 01/06/17 21:00 01/07/17 21:23 (Folate) 1 mg DAILY PO 01/07/17 09:00 01/08/17 08:14 (Synthroid) 25 mcg DAILY@0600 PO 01/07/17 06:00 01/08/17 05:31 (Exelon 9.5 Mg Patch.24hr) 1 patch DAILY T-DERMAL 01/07/17 09:00 01/08/17 08:14 Miscellaneous Information 1 DAILY TD 01/08/17 09:00 01/08/17 08:36 (Tenormin) 25 mg Q12HR PO 01/06/17 21:00 01/08/17 08:14 (Zofran Odt) 4 mg Q6H PRN PO 01/06/17 15:30 (Loxitane) 25 mg QID PO 01/07/17 18:00 01/08/17 12:17 (Imitrex) 25 mg DAILY PRN PO 01/08/17 11:45 (Glucophage) 500 mg BIDPC PO 01/08/17 18:00 (Topamax) 50 mg Q12HR PO 01/08/17 21:00 01/15/17 20:59 A/P Problem List: (1) Schizoaffective disorder ICD Code: F25.9 Status: Acute (2) Schizophrenia ICD Code: F20.9 Status: Acute (3) Hypothyroidism ICD Code: E03.9 Status: Acute (4) DM2 (diabetes mellitus, type 2) ICD Code: E11.9 Status: Chronic (5) Migraine ICD Code: G43.909 Status: Acute Assessment and Plan Patient is a 20-year-old female with primary medical history of DM 2, tachycardia, memory problems, hypothyroidism who came in under [place] act for desire behavior. She is now admitted to inpatient psychiatry unit for further evaluation. Consulted for medical management. HTN, tachycardia - on atenolol 50 mg twice a day. However, BP is in the 90s. Patient states she always has low blood pressure. - atenolol to 25 twice a day. - Monitor BP and heart rate. Controlled BP and heart rate. DM 2 - hemoglobin A1c 4.9 - Metformin 1000 mg twice a day - Decrease metformin to 500 mg twice a day Hypothyroidism - TSH, T4 within normal - Restart medication Synthroid 25 g, Cytomel 5 g twice a day Migraine - sumatriptan 50 mg po once and then PRN daily - Patient states she was previously taking Topamax 50 mg twice a day, however this part of her allergy/adverse reaction medication. Verified with patient that she is not allergic to the medication. - Topamax 50 mg twice a day - Zofran for nausea Patient has memory problems, has undergone ECT - on Exelon patch Chronic constipation - patient taking Linzess at home. May restart Linzess home medication if available. - PRN bowel regimen DVT prop ambulatory Discussed with patient, nursing Written by Tyrone Haines, on behalf of Dr. Link on 01/08/17 at 16:57 . Attending Statement All or portions of this note were transcribed by maria guadalupe Haines. I, Dr. Carmine Avendano personally performed the history, physical exam, and medical decision making; and confirmed the accuracy of the information in the transcribed note. Authenticated by Dr. Carmine Avendano on 01/08/17 at 16:58. Problem Qualifiers (1) Schizoaffective disorder: Qualified Code: F25.0 - Schizoaffective disorder, bipolar type Tyrone Hernandez Jan 08, 2017 11:40 Carmine Strauss MD Jan 08, 2017 16:59
[2017-01-08] MEDS ORDERED: SUMAtriptan SUCCINATE 50 MG TAB PO ONE (18:00)
[2017-01-08 20:16] VITALS: BP 99/66; PULSE 90; RESP 16; TEMP 98.2; O2SAT 100
[2017-01-08] MEDS: cloZAPine 100 MG TAB PO SCH (21:12)
[2017-01-08] MEDS: TOPIRAMATE 25 MG TAB PO SCH (21:12)
[2017-01-08] MEDS: traZODone HCL 50 MG TAB PO PRN (21:13)
[2017-01-08] MEDS: SUMAtriptan SUCCINATE 25 MG TAB PO PRN (22:18)
[2017-01-09] MEDS: LEVOTHYROXINE SODIUM 25 MCG TAB PO SCH (06:07)
[2017-01-09] MEDS: LIOTHYRONINE SODIUM 5 MCG TAB PO SCH ×2 (06:07→16:00)
[2017-01-09 06:30] VITALS: BP 99/56; PULSE 84; RESP 18; TEMP 97.5; O2SAT 98
[2017-01-09] MEDS: REMOVE OLD PATCH TD SCH (09:00)
[2017-01-09] MEDS: FOLIC ACID 1 MG TAB PO SCH (09:46)
[2017-01-09] MEDS: clonazePAM 1 MG TAB PO SCH ×3 (09:47→17:50)
[2017-01-09] MEDS: metFORMIN HCL 500 MG TAB PO SCH ×2 (09:47→17:50)
[2017-01-09] MEDS: LOXAPINE 5 MG CAP PO SCH ×3 (09:47→18:00)
[2017-01-09] MEDS: ATENOLOL 25 MG TAB PO SCH ×2 (09:48→21:51)
[2017-01-09] MEDS: TOPIRAMATE 25 MG TAB PO SCH ×2 (09:48→21:51)
[2017-01-09] MEDS: RIVASTIGMINE 9.5 MG/24 HOUR PATCH T-DERMAL SCH (09:48)
--- NOTE | 2017-01-09 12:38 | HHI.PYPN ---
Subjective Remarks Patient remains depressed, anxious and seclusive. She continues to ask for an increased dose of Loxitane even though this physician did increase the dose per her request. This physician feels she is not adequately responded to her medication yet. Review of Systems ROS Limitations: Clinical Condition Except as stated in HPI: all other systems reviewed are Neg Objective Alert: Yes [place]: Person, Place, Date Mood: Anxious, Depressed Affect: Restricted Memory Intact: Immediate, Remote Hallucinations: Auditory Delusions: Yes Delusion Type: Paranoid, Other Suicidal: Ideation Homicidal: Ideation Insight/Judgement Insight and judgment remain impaired and she is unable to care for herself. Vitals/IOs Vital Signs Date Time Temp Pulse Resp B/P Pulse Ox O2 Delivery O2 Flow Rate FiO2 01/09/17 06:30 97.5 84 18 99/56 98 01/05/17 22:26 Room Air Assessment & Plan Problem List: (1) Schizoaffective disorder ICD Code: F25.9 (2) Generalized anxiety disorder ICD Code: F41.1 Assessment & Plan Estimated LOS: 3 days this physician continues to hope the patient's medication increases will take effect and that by Thursday her mood and affect and cognition will have improved. If not, we will look at titrating up her medicine or changing medication. Justification for Cont. Inpt. Depressed, psychotic and unable to care for herself. Problem Qualifiers (1) Schizoaffective disorder: Qualified Code: F25.0 - Schizoaffective disorder, bipolar type García Araya MD Jan 09, 2017 12:38
[2017-01-09] MEDS: SUMAtriptan SUCCINATE 25 MG TAB PO PRN (15:55)
[2017-01-09 19:19] VITALS: BP 100/60; PULSE 83; RESP 16; TEMP 97.5; O2SAT 98
[2017-01-09] MEDS: cloZAPine 100 MG TAB PO SCH (21:00)
[2017-01-09] MEDS: diphenhydrAMINE HCL 50 MG CAP - HS PRN PO (21:51)
[2017-01-09] MEDS: traZODone HCL 50 MG TAB PO PRN (21:52)
[2017-01-09] MEDS: ACETAMINOPHEN 325 MG TAB PO PRN (21:57)
[2017-01-10] MEDS: ALPRAZolam 0.5 MG TAB PO PRN (02:16)
[2017-01-10 06:17] VITALS: BP 99/58; PULSE 98; RESP 18; TEMP 98.5; O2SAT 99
[2017-01-10] MEDS: LIOTHYRONINE SODIUM 5 MCG TAB PO SCH ×2 (06:31→16:00)
[2017-01-10] MEDS: LEVOTHYROXINE SODIUM 25 MCG TAB PO SCH (06:31)
[2017-01-10] MEDS: metFORMIN HCL 500 MG TAB PO SCH ×2 (09:00→18:00)
[2017-01-10] MEDS: RIVASTIGMINE 9.5 MG/24 HOUR PATCH T-DERMAL SCH (09:00)
[2017-01-10] MEDS: clonazePAM 1 MG TAB PO SCH ×3 (09:00→18:00)
[2017-01-10] MEDS: REMOVE OLD PATCH TD SCH (09:00)
[2017-01-10] MEDS: FOLIC ACID 1 MG TAB PO SCH (09:01)
[2017-01-10] MEDS: TOPIRAMATE 25 MG TAB PO SCH ×2 (09:03→20:40)
[2017-01-10] MEDS: ATENOLOL 25 MG TAB PO SCH ×2 (09:04→20:40)
[2017-01-10] MEDS: LOXAPINE 5 MG CAP PO SCH ×3 (11:15→18:00)
--- NOTE | 2017-01-10 14:48 | HHI.PR ---
Subjective Remarks Patient states still has headache - rates it as 6/10, improved after sumatriptan. denies fevrs/chills denies nausea, vomiting or abdominal pain Objective Vitals Vital Signs Date Time Temp Pulse Resp B/P Pulse Ox O2 Delivery O2 Flow Rate FiO2 01/10/17 06:17 98.5 98 18 99/58 99 01/09/17 19:19 97.5 83 16 100/60 98 Result Diagram: 01/06/17 0657 01/06/17 0637 Objective Remarks GENERAL: This is a thin-appearing, well-developed patient, in no apparent distress. SKIN: No rashes, ecchymoses or lesions. Cool and dry. HEAD: Atraumatic. Normocephalic. No temporal or scalp tenderness. EYES: Pupils equal round and reactive. Extraocular motions intact. No scleral icterus. No injection or drainage. ENT: Nose without bleeding. Throat without erythema. Uvula midline. Airway patent. NECK: Trachea midline. No JVD or lymphadenopathy. Supple, nontender, no meningeal signs. CARDIOVASCULAR: Regular rate and rhythm without murmurs, gallops, or rubs. RESPIRATORY: Clear to auscultation. Breath sounds equal bilaterally. No wheezes , rales, or rhonchi. GASTROINTESTINAL: Abdomen soft, non-tender, nondistended. Bowel sounds active 4 MUSCULOSKELETAL: Extremities without clubbing, cyanosis, or edema. NEUROLOGICAL: Awake and alert. Able to follow commands. Oriented. Motor and sensory grossly within normal limits. Normal Medications and IVs Current Medications Medications (Trade) Dose Ordered Sig/Ady Route Start Time Stop Time Status Last Admin (Benadryl) 50 mg HS PRN PO 01/05/17 22:00 01/09/17 21:51 (Desyrel) 50 mg HS PRN PO 01/05/17 22:00 01/09/17 21:52 (Tylenol) 650 mg Q4H PRN PO 01/05/17 22:00 01/09/17 21:57 (Milk Of Magnesia Liq) 30 ml DAILY PRN PO 01/05/17 22:00 (Mag-Al Plus Susp Liq) 30 ml Q6H PRN PO 01/05/17 22:00 (Cytomel) 5 mcg BID@06,16 PO 01/06/17 06:00 01/10/17 06:31 Patient Own Medication PT OWN MED: LINACLOT... HS PO 01/06/17 21:00 Hold (KlonoPIN) 2 mg TID PO 01/06/17 18:00 01/10/17 13:15 (Xanax) 0.5 mg Q6H PRN PO 01/06/17 13:30 01/10/17 02:16 (Clozaril) 800 mg HS PO 01/06/17 21:00 01/09/17 21:00 (Folate) 1 mg DAILY PO 01/07/17 09:00 01/10/17 09:01 (Synthroid) 25 mcg DAILY@0600 PO 01/07/17 06:00 01/10/17 06:31 (Exelon 9.5 Mg Patch.24hr) 1 patch DAILY T-DERMAL 01/07/17 09:00 01/10/17 09:00 Miscellaneous Information 1 DAILY TD 01/08/17 09:00 01/10/17 09:00 (Tenormin) 25 mg Q12HR PO 01/06/17 21:00 01/10/17 09:04 (Zofran Odt) 4 mg Q6H PRN PO 01/06/17 15:30 (Imitrex) 25 mg DAILY PRN PO 01/08/17 11:45 01/09/17 15:55 (Glucophage) 500 mg BIDPC PO 01/08/17 18:00 01/10/17 09:00 (Topamax) 50 mg Q12HR PO 01/08/17 21:00 01/15/17 20:59 01/10/17 09:03 (Loxitane) 50 mg TID PO 01/09/17 18:00 01/10/17 13:15 Urinary Catheter: No Vascular Central Line Catheter: No A/P Problem List: (1) Schizoaffective disorder ICD Code: F25.9 Status: Acute (2) Schizophrenia ICD Code: F20.9 Status: Acute (3) Hypothyroidism ICD Code: E03.9 Status: Acute (4) DM2 (diabetes mellitus, type 2) ICD Code: E11.9 Status: Chronic (5) Migraine ICD Code: G43.909 Status: Acute Assessment and Plan Patient is a 20-year-old female with primary medical history of DM 2, tachycardia, memory problems, hypothyroidism who came in under [place] act for desire behavior. She is now admitted to inpatient psychiatry unit for further evaluation. Consulted for medical management. HTN, tachycardia - on atenolol 50 mg twice a day. However, BP is in the 90s. Patient states she always has low blood pressure. - atenolol to 25 twice a day. - Monitor BP and heart rate. Controlled BP and heart rate. DM 2 - hemoglobin A1c 4.9 - Metformin 1000 mg twice a day - Decreased metformin to 500 mg twice a day Hypothyroidism - TSH, T4 within normal - Restart medication Synthroid 25 g, Cytomel 5 g twice a day Migraine - sumatriptan 50 mg po once and then PRN daily - Patient states she was previously taking Topamax 50 mg twice a day, however this part of her allergy/adverse reaction medication. Verified with patient that she is not allergic to the medication. - Topamax 50 mg twice a day - Zofran for nausea - Will RX oxycodone 5 mg PRN headache. Patient states she was taking this at home. Patient has memory problems, has undergone ECT - on Exelon patch Chronic constipation - patient taking Linzess at home. May restart Linzess home medication if available. - PRN bowel regimen DVT prop ambulatory Discussed with patient. Problem Qualifiers (1) Schizoaffective disorder: Qualified Code: F25.0 - Schizoaffective disorder, bipolar type Carmine Strauss MD Jan 10, 2017 14:48
[2017-01-10 18:22] VITALS: BP 95/62; PULSE 93; RESP 16; O2SAT 100
--- NOTE | 2017-01-10 20:28 | HHI.PYPN ---
Subjective Remarks Pt seen and discussed with staff. Pt remains psychotic and reports AH ("Get ready for [place]") She c/o of poor sleep due to AH. She insists that Dr. Araya decreased her loxapine dose but review of chart shows that medication has been recently increased substantially. Affect is very flat with intense stare. She denies medication side effects. No SI/HI. Self care is poor. Objective Alert: Yes [place]: Person, Place, Date Mood: Depressed Affect: Flat Memory Intact: Immediate, Remote Hallucinations: Auditory Delusions: Yes Delusion Type: Paranoid Suicidal: Ideation (denies) Homicidal: Ideation (denies) Insight/Judgement poor Vitals/IOs Vital Signs Date Time Temp Pulse Resp B/P Pulse Ox O2 Delivery O2 Flow Rate FiO2 01/10/17 18:22 93 16 95/62 100 01/10/17 06:17 98.5 Assessment & Plan Problem List: (1) Schizoaffective disorder ICD Code: F25.9 (2) Generalized anxiety disorder ICD Code: F41.1 Assessment & Plan As medication were recently increased substantially, most likely need time to take effect. Will continue current medication and evaluate tomorrow for increase. Estimated LOS: days Justification for Cont. Inpt. psychotic, poor self care Problem Qualifiers (1) Schizoaffective disorder: Qualified Code: F25.0 - Schizoaffective disorder, bipolar type Cony Price MD Jan 10, 2017 20:28
[2017-01-10] MEDS: cloZAPine 100 MG TAB PO SCH (20:37)
[2017-01-10] MEDS: diphenhydrAMINE HCL 50 MG CAP - HS PRN PO (20:39)
[2017-01-11 05:02] VITALS: BP 109/72; PULSE 98; RESP 16; TEMP 98.7; O2SAT 97
[2017-01-11] MEDS: LIOTHYRONINE SODIUM 5 MCG TAB PO SCH ×2 (06:20→15:16)
[2017-01-11] MEDS: LEVOTHYROXINE SODIUM 25 MCG TAB PO SCH (06:20)
[2017-01-11] MEDS: REMOVE OLD PATCH TD SCH (09:00)
[2017-01-11] MEDS: RIVASTIGMINE 9.5 MG/24 HOUR PATCH T-DERMAL SCH (09:00)
[2017-01-11] MEDS: TOPIRAMATE 25 MG TAB PO SCH ×2 (09:05→20:36)
[2017-01-11] MEDS: clonazePAM 1 MG TAB PO SCH ×3 (09:06→17:46)
[2017-01-11] MEDS: metFORMIN HCL 500 MG TAB PO SCH ×2 (09:06→17:46)
[2017-01-11] MEDS: ATENOLOL 25 MG TAB PO SCH ×2 (09:06→20:36)
[2017-01-11] MEDS: LOXAPINE 5 MG CAP PO SCH ×3 (09:06→17:47)
[2017-01-11] MEDS: FOLIC ACID 1 MG TAB PO SCH (09:06)
--- NOTE | 2017-01-11 13:02 | HHI.PR ---
Subjective Remarks Patient states headache is better with oxycodone but still present requesting increase in dose of oxycodone - states pain relief only lasts for 2 hours and brings headache down to a 7 Objective Vitals Vital Signs Date Time Temp Pulse Resp B/P Pulse Ox O2 Delivery O2 Flow Rate FiO2 01/11/17 05:02 98.7 98 16 109/72 97 01/10/17 18:22 93 16 95/62 100 Objective Remarks GENERAL: This is a thin-appearing, well-developed patient, in no apparent distress. SKIN: No rashes, ecchymoses or lesions. Cool and dry. HEAD: Atraumatic. Normocephalic. No temporal or scalp tenderness. EYES: Pupils equal round and reactive. Extraocular motions intact. No scleral icterus. No injection or drainage. ENT: Nose without bleeding. Throat without erythema. Uvula midline. Airway patent. NECK: Trachea midline. No JVD or lymphadenopathy. Supple, nontender, no meningeal signs. CARDIOVASCULAR: Regular rate and rhythm without murmurs, gallops, or rubs. RESPIRATORY: Clear to auscultation. Breath sounds equal bilaterally. No wheezes , rales, or rhonchi. GASTROINTESTINAL: Abdomen soft, non-tender, nondistended. Bowel sounds active 4 MUSCULOSKELETAL: Extremities without clubbing, cyanosis, or edema. NEUROLOGICAL: Awake and alert. Able to follow commands. Oriented. Motor and sensory grossly within normal limits. Normal Medications and IVs Current Medications Medications (Trade) Dose Ordered Sig/Ady Route Start Time Stop Time Status Last Admin (Benadryl) 50 mg HS PRN PO 01/05/17 22:00 01/10/17 20:39 (Desyrel) 50 mg HS PRN PO 01/05/17 22:00 01/09/17 21:52 (Tylenol) 650 mg Q4H PRN PO 01/05/17 22:00 01/09/17 21:57 (Milk Of Magnesia Liq) 30 ml DAILY PRN PO 01/05/17 22:00 (Mag-Al Plus Susp Liq) 30 ml Q6H PRN PO 01/05/17 22:00 (Cytomel) 5 mcg BID@06,16 PO 01/06/17 06:00 01/11/17 06:20 Patient Own Medication PT OWN MED: LINACLOT... HS PO 01/06/17 21:00 Hold (KlonoPIN) 2 mg TID PO 01/06/17 18:00 01/11/17 09:06 (Xanax) 0.5 mg Q6H PRN PO 01/06/17 13:30 01/10/17 02:16 (Clozaril) 800 mg HS PO 01/06/17 21:00 01/10/17 20:37 (Folate) 1 mg DAILY PO 01/07/17 09:00 01/11/17 09:06 (Synthroid) 25 mcg DAILY@0600 PO 01/07/17 06:00 01/11/17 06:20 (Exelon 9.5 Mg Patch.24hr) 1 patch DAILY T-DERMAL 01/07/17 09:00 01/11/17 09:00 Miscellaneous Information 1 DAILY TD 01/08/17 09:00 01/11/17 09:00 (Tenormin) 25 mg Q12HR PO 01/06/17 21:00 01/11/17 09:06 (Zofran Odt) 4 mg Q6H PRN PO 01/06/17 15:30 (Imitrex) 25 mg DAILY PRN PO 01/08/17 11:45 01/09/17 15:55 (Glucophage) 500 mg BIDPC PO 01/08/17 18:00 01/11/17 09:06 (Topamax) 50 mg Q12HR PO 01/08/17 21:00 01/15/17 20:59 01/11/17 09:05 (Loxitane) 50 mg TID PO 01/09/17 18:00 01/11/17 09:06 (Roxicodone) 5 mg Q6H PRN PO 01/10/17 15:00 01/11/17 06:37 Urinary Catheter: No Vascular Central Line Catheter: No A/P Problem List: (1) Schizoaffective disorder ICD Code: F25.9 Status: Acute (2) Schizophrenia ICD Code: F20.9 Status: Acute (3) Hypothyroidism ICD Code: E03.9 Status: Acute (4) DM2 (diabetes mellitus, type 2) ICD Code: E11.9 Status: Chronic (5) Migraine ICD Code: G43.909 Status: Acute Assessment and Plan Patient is a 20-year-old female with primary medical history of DM 2, tachycardia, memory problems, hypothyroidism who came in under [employer] act for desire behavior. She is now admitted to inpatient psychiatry unit for further evaluation. Consulted for medical management. HTN, tachycardia - on atenolol 50 mg twice a day. However, BP is in the 90s. Patient states she always has low blood pressure. - atenolol to 25 twice a day. - Monitor BP and heart rate. Controlled BP and heart rate. DM 2 - hemoglobin A1c 4.9 - Metformin 1000 mg twice a day - Decreased metformin to 500 mg twice a day Hypothyroidism - TSH, T4 within normal - Restart medication Synthroid 25 g, Cytomel 5 g twice a day Migraine - sumatriptan 50 mg po once and then PRN daily - Patient states she was previously taking Topamax 50 mg twice a day, however this part of her allergy/adverse reaction medication. Verified with patient that she is not allergic to the medication. - Topamax 50 mg twice a day - Zofran for nausea - Will RX oxycodone 5 mg PRN headache. Patient states she was taking this at home. - will Increase Oxycodone caba to 10 mg PRN headache - this should not be continued upon discharge. Patient has memory problems, has undergone ECT - on Exelon patch Chronic constipation - patient taking Linzess at home. May restart Linzess home medication if available. - PRN bowel regimen DVT prop ambulatory Discussed with patient. Problem Qualifiers (1) Schizoaffective disorder: Qualified Code: F25.0 - Schizoaffective disorder, bipolar type Carmine Strauss MD Jan 11, 2017 13:02
[2017-01-11 13:09] VITALS: BP 101/61; PULSE 88
[2017-01-11 17:11] VITALS: BP 100/62; PULSE 78; RESP 16; TEMP 98.1; O2SAT 100
[2017-01-11 18:10] VITALS: BP 100/62; PULSE 78; RESP 16; TEMP 98.1; O2SAT 100
[2017-01-11 18:30] VITALS: BP 113/70; PULSE 89
--- NOTE | 2017-01-11 18:39 | HHI.PYPN ---
Subjective Remarks Pt seen and discussed with staff. Pt reports that AH have decreased during the day time. She reported intermittent SI/HI to RN today and that AH tell her that people are trying to poison her. She is a little bit less flat in affect today. NO medication side effects. Objective Alert: Yes [place]: Person, Place, Date Mood: Depressed Affect: Flat Memory Intact: Immediate, Recent, Remote Hallucinations: Auditory Delusions: Yes Delusion Type: Paranoid Suicidal: Ideation (denies) Homicidal: Ideation (denies) Insight/Judgement poor Vitals/IOs Vital Signs Date Time Temp Pulse Resp B/P Pulse Ox O2 Delivery O2 Flow Rate FiO2 01/11/17 18:10 98.1 78 16 100/62 100 Assessment & Plan Problem List: (1) Schizoaffective disorder ICD Code: F25.9 (2) Generalized anxiety disorder ICD Code: F41.1 Assessment & Plan Continue current tx plan Estimated LOS: days Justification for Cont. Inpt. impairments in reality testing Problem Qualifiers (1) Schizoaffective disorder: Qualified Code: F25.0 - Schizoaffective disorder, bipolar type Cony Price MD Jan 11, 2017 18:39
[2017-01-11] MEDS: cloZAPine 100 MG TAB PO SCH (20:35)
[2017-01-11] MEDS: traZODone HCL 50 MG TAB PO PRN (20:36)
[2017-01-11] MEDS: diphenhydrAMINE HCL 50 MG CAP - HS PRN PO (20:36)
[2017-01-12 05:06] VITALS: BP 102/60; PULSE 82; RESP 16; TEMP 98.4; O2SAT 98
[2017-01-12 05:17] VITALS: BP 102/60; PULSE 82; RESP 16; TEMP 98.4
[2017-01-12] MEDS: LEVOTHYROXINE SODIUM 25 MCG TAB PO SCH (05:55)
[2017-01-12] MEDS: LIOTHYRONINE SODIUM 5 MCG TAB PO SCH ×2 (05:57→16:00)
[2017-01-12 07:43] LABS: AUTOMATED NEUTROPHIL # 4.3 TH/MM3 (1.8-7.7); BASOPHIL # 0.1 TH/MM3 (0-0.2); BASOPHIL % 0.7 % (0.0-2.0); EOSINOPHIL % 0.1 % (0.0-4.0); HEMATOCRIT 36.6 % (35.0-46.0); HEMO FLAGS DIFF FINAL; LYMPH % 39.4 % (9.0-44.0); LYMPHOCYTE # 3.3 TH/MM3 (1.0-4.8); MEAN CELL VOLUME 87.6 FL (80.0-100.0); MEAN CORPUSCULAR HEMOGLOBIN 29.1 PG (27.0-34.0); MEAN CORPUSCULAR HGB CONC 33.2 % (32.0-36.0); MONO % 9.4 % (0.0-8.0); NEUT % 50.4 % (16.0-70.0); PLATELET COUNT 140 TH/MM3 (150-450); RED BLOOD COUNT 4.18 MIL/MM3 (4.00-5.30); RED CELL DISTRIBUTION WIDTH 13.4 % (11.6-17.2); WHITE BLOOD COUNT 8.4 TH/MM3 (4.0-11.0)
[2017-01-12] MEDS: clonazePAM 1 MG TAB PO SCH ×3 (08:15→16:55)
[2017-01-12] MEDS: TOPIRAMATE 25 MG TAB PO SCH ×2 (08:15→20:58)
[2017-01-12] MEDS: metFORMIN HCL 500 MG TAB PO SCH ×2 (08:15→16:55)
[2017-01-12] MEDS: LOXAPINE 5 MG CAP PO SCH ×3 (08:20→16:55)
[2017-01-12] MEDS: FOLIC ACID 1 MG TAB PO SCH (08:20)
[2017-01-12] MEDS: ATENOLOL 25 MG TAB PO SCH ×2 (08:20→20:54)
[2017-01-12] MEDS: RIVASTIGMINE 9.5 MG/24 HOUR PATCH T-DERMAL SCH (08:21)
[2017-01-12] MEDS: REMOVE OLD PATCH TD SCH (09:00)
--- NOTE | 2017-01-12 09:26 | HHI.PR ---
Subjective Remarks Follow-up migraine, back pain and sciatica. States she has headache, lower back pain and bilateral lower extremity pain. History of degenerative disc disease. Reports she is prescribed [place] 5 g 3 times a day and Zanaflex 6 mg 3 times a day by Dr. Holbrook. No fever, visual change, numbness and focal weakness. Advised we will confirm with Dr. Holbrook for me to continue her medicines if okay with psychiatry. We will discontinue oxycodone. Discussed with RN who will call Dr. Holbrook's office. RN is also concerned of drug seeking behavior Objective Vitals Vital Signs Date Time Temp Pulse Resp B/P Pulse Ox O2 Delivery O2 Flow Rate FiO2 01/12/17 05:17 98.4 82 16 102/60 01/12/17 05:06 98.4 82 16 102/60 98 01/11/17 18:30 89 113/70 01/11/17 18:10 98.1 78 16 100/62 100 01/11/17 17:11 98.1 78 16 100/62 100 01/11/17 13:09 88 101/61 Result Diagram: 01/12/17 0655 Objective Remarks GENERAL: This is a thin-appearing, well-developed patient, in no apparent distress. SKIN: No rashes, ecchymoses or lesions. Cool and dry. HEAD: Atraumatic. Normocephalic. No temporal or scalp tenderness. EYES: Pupils equal round and reactive. Extraocular motions intact. No scleral icterus. No injection or drainage. ENT: Nose without bleeding. Throat without erythema. Uvula midline. Airway patent. NECK: Trachea midline. No JVD or lymphadenopathy. Supple, nontender, no meningeal signs. CARDIOVASCULAR: Regular rate and rhythm without murmurs, gallops, or rubs. RESPIRATORY: Clear to auscultation. Breath sounds equal bilaterally. No wheezes , rales, or rhonchi. GASTROINTESTINAL: Abdomen soft, non-tender, nondistended. Bowel sounds active 4 MUSCULOSKELETAL: Extremities without clubbing, cyanosis, or edema. NEUROLOGICAL: Awake and alert. Able to follow commands. Oriented. Motor and sensory grossly within normal limits. Normal A/P Problem List: (1) Schizoaffective disorder ICD Code: F25.9 Status: Acute (2) Schizophrenia ICD Code: F20.9 Status: Acute (3) Hypothyroidism ICD Code: E03.9 Status: Chronic (4) DM2 (diabetes mellitus, type 2) ICD Code: E11.9 Status: Chronic (5) Migraine ICD Code: G43.909 Status: Chronic Assessment and Plan Patient is a 20-year-old female with primary medical history of DM 2, tachycardia, memory problems, hypothyroidism who came in under [employer] act for desire behavior. She is now admitted to inpatient psychiatry unit for further evaluation. Consulted for medical management. HTN, tachycardia - on atenolol 50 mg twice a day. However, BP is in the 90s. Patient states she always has low blood pressure. - atenolol to 25 twice a day with hold parameters. - Monitor BP and heart rate. Controlled BP and heart rate. DM 2 - hemoglobin A1c 4.9 - Metformin 1000 mg twice a day - Decreased metformin to 500 mg twice a day Hypothyroidism - TSH, T4 within normal - Restart medication Synthroid 25 g, Cytomel 5 g twice a day Migraine - nonfocal. - Sumatriptan 50 mg po once and then PRN daily - Patient states she was previously taking Topamax 50 mg twice a day, however this part of her allergy/adverse reaction medication. Verified with patient that she is not allergic to the medication. - Topamax 50 mg twice a day - Zofran for nausea -Will avoid narcotics if possible. Check ESR Chronic lower back pain with sciatica. Check ESR. Restart [place] and Zanaflex if confirmed then discontinue oxycodone. Counseled regarding narcotics. Heating pads Patient has memory problems, has undergone ECT - on Exelon patch Chronic constipation - patient taking Linzess at home. May restart Linzess home medication if available. - PRN bowel regimen. Start Melodie-Colace DVT prop ambulatory Problem Qualifiers (1) Schizoaffective disorder: Qualified Code: F25.0 - Schizoaffective disorder, bipolar type Josue Jorge MD Jan 12, 2017 09:26
[2017-01-12] MEDS: DOCUSATE SODIUM 50 MG/SENNA 8.6 MG TAB PO SCH ×2 (10:15→20:58)
[2017-01-12] MEDS ORDERED: CLOZ100 PO (10:37)
[2017-01-12] MEDS ORDERED: NORC5TAB PO (10:40)
[2017-01-12] MEDS ORDERED: ASPI81CH CHEW (10:41)
[2017-01-12] MEDS ORDERED: NEUR300C PO (10:42)
[2017-01-12] MEDS ORDERED: NAPR220T95 PO (10:42)
[2017-01-12] MEDS ORDERED: NON-FORMULARY DRUG (Naproxen Sodium (Aleve) 220 MG) PO PRN (12:30)
[2017-01-12] MEDS: GABAPENTIN 300 MG CAP PO SCH ×2 (12:59→16:56)
[2017-01-12] MEDS: ACETAMINOPHEN/HYDROcodone 325 MG/5 MG TAB PO PRN ×2 (12:59→19:24)
--- NOTE | 2017-01-12 14:19 | HHI.PYPN ---
Subjective Remarks Patient seen in the [place] with nurse Lina, patient calm appears somewhat sedated speaking in a very low slow whisper with poor eye contact she appears somewhat psychomotor retarded. Though she is complaining of poor sleep and wanting more and Loxitane. Wanting it increased from 3 times a day to 3 times a day and at bedtime. However upon review of her EMR patient is on a very large amount of various psychotropic medications anxiolytics and opiates all of which are quite sedating. Will not change medications at the present time Review of Systems Except as stated in HPI: all other systems reviewed are Neg Objective Alert: Yes [place]: Person, Place, Date Mood: Depressed Affect: Flat Memory Intact: Immediate, Recent, Remote Hallucinations: Auditory Delusions: Yes Delusion Type: Paranoid Suicidal: Ideation (denies) Homicidal: Ideation (denies) Insight/Judgement Very poor Labs Test 01/12/17 01/12/17 06:55 10:35 White Blood Count 8.4 TH/MM3 Red Blood Count 4.18 MIL/MM3 Hemoglobin 12.2 GM/DL Hematocrit 36.6 % Mean Corpuscular Volume 87.6 FL Mean Corpuscular Hemoglobin 29.1 PG Mean Corpuscular Hemoglobin 33.2 % Concent Red Cell Distribution Width 13.4 % Platelet Count 140 TH/MM3 Mean Platelet Volume 11.1 FL Neutrophils (%) (Auto) 50.4 % Lymphocytes (%) (Auto) 39.4 % Monocytes (%) (Auto) 9.4 % Eosinophils (%) (Auto) 0.1 % Basophils (%) (Auto) 0.7 % Neutrophils # (Auto) 4.3 TH/MM3 Lymphocytes # (Auto) 3.3 TH/MM3 Monocytes # (Auto) 0.8 TH/MM3 Eosinophils # (Auto) 0.0 TH/MM3 Basophils # (Auto) 0.1 TH/MM3 CBC Comment DIFF FINAL Differential Comment Erythrocyte Sedimentation Rate 12 mm/hr Vitals/IOs Vital Signs Date Time Temp Pulse Resp B/P Pulse Ox O2 Delivery O2 Flow Rate FiO2 01/12/17 05:17 98.4 82 16 102/60 01/12/17 05:06 98 Assessment & Plan Problem List: (1) Schizoaffective disorder ICD Code: F25.9 (2) Generalized anxiety disorder ICD Code: F41.1 Assessment & Plan Estimated LOS: days patient appears to be somewhat steady related perhaps to her polypharmacy, continues to ask for more medications now for Loxitane to be added at at bedtime. I will declined to do that. For now continue treatment no change Justification for Cont. Inpt. At this time patient will decompensate if placed in a lower level of care Discharge Planning To be determined Problem Qualifiers (1) Schizoaffective disorder: Qualified Code: F25.0 - Schizoaffective disorder, bipolar type Daniele Ku MD Jan 12, 2017 14:19
[2017-01-12] MEDS ORDERED: NAPROXEN 250 MG TAB PO PRN (15:15)
[2017-01-12 19:44] VITALS: BP 99/60; PULSE 90; RESP 16; TEMP 98.5; O2SAT 96
[2017-01-12] MEDS: cloZAPine 100 MG TAB PO SCH (20:58)
[2017-01-12] MEDS: diphenhydrAMINE HCL 50 MG CAP - HS PRN PO (21:38)
[2017-01-13] MEDS: ACETAMINOPHEN/HYDROcodone 325 MG/5 MG TAB PO PRN (04:08)
[2017-01-13 05:57] VITALS: BP 95/63; PULSE 99; RESP 18; TEMP 98; O2SAT 95
[2017-01-13] MEDS: LIOTHYRONINE SODIUM 5 MCG TAB PO SCH (06:01)
[2017-01-13] MEDS: LEVOTHYROXINE SODIUM 25 MCG TAB PO SCH (06:01)
--- NOTE | 2017-01-13 08:21 | HHI.PR ---
Subjective Remarks Follow-up chronic pain. States she had increased pain of the left lower extremity last night improved this morning. No swelling or recent trauma. Denies chest pain, shortness of breath, hemoptysis or palpitations. Confirms she also takes plaquenil 200 mg twice a day for autoimmune disease. Discussed with RN Objective Vitals Vital Signs Date Time Temp Pulse Resp B/P Pulse Ox O2 Delivery O2 Flow Rate FiO2 01/13/17 05:57 98.0 99 18 95/63 95 01/12/17 19:44 98.5 90 16 99/60 96 Result Diagram: 01/12/17 0655 Objective Remarks GENERAL: This is a thin-appearing, well-developed patient, in no apparent distress. SKIN: No rashes, ecchymoses or lesions. Cool and dry. HEAD: Atraumatic. Normocephalic. No temporal or scalp tenderness. EYES: Pupils equal round and reactive. Extraocular motions intact. No scleral icterus. No injection or drainage. ENT: Nose without bleeding. Throat without erythema. Uvula midline. Airway patent. NECK: Trachea midline. No JVD or lymphadenopathy. Supple, nontender, no meningeal signs. CARDIOVASCULAR: Regular rate and rhythm without murmurs, gallops, or rubs. RESPIRATORY: Clear to auscultation. Breath sounds equal bilaterally. No wheezes , rales, or rhonchi. GASTROINTESTINAL: Abdomen soft, non-tender, nondistended. Bowel sounds active 4 MUSCULOSKELETAL: Extremities without clubbing, cyanosis, or edema. No evidence of DVT or cellulitis of the left lower extremity NEUROLOGICAL: Awake and alert. Able to follow commands. Oriented. Motor and sensory grossly within normal limits. Normal Procedures none A/P Problem List: (1) Schizoaffective disorder ICD Code: F25.9 Status: Acute (2) Schizophrenia ICD Code: F20.9 Status: Acute (3) Hypothyroidism ICD Code: E03.9 Status: Chronic (4) DM2 (diabetes mellitus, type 2) ICD Code: E11.9 Status: Chronic (5) Migraine ICD Code: G43.909 Status: Chronic Assessment and Plan Patient is a 20-year-old female with primary medical history of DM 2, tachycardia, memory problems, hypothyroidism who came in under [employer] act for desire behavior. She is now admitted to inpatient psychiatry unit for further evaluation. Consulted for medical management. HTN, tachycardia - on atenolol 50 mg twice a day. However, BP is in the 90s. Patient states she always has low blood pressure. - atenolol to 25 twice a day with hold parameters. - Monitor BP and heart rate. Controlled BP and heart rate. DM 2 - hemoglobin A1c 4.9 - Metformin 1000 mg twice a day - Decreased metformin to 500 mg twice a day Hypothyroidism - TSH, T4 within normal - Restart medication Synthroid 25 g, Cytomel 5 g twice a day Migraine - nonfocal. Improved - Sumatriptan 50 mg po once and then PRN daily - Patient states she was previously taking Topamax 50 mg twice a day, however this part of her allergy/adverse reaction medication. Verified with patient that she is not allergic to the medication. - Topamax 50 mg twice a day - Zofran for nausea - Will avoid narcotics if possible. Chronic lower back pain with sciatica. ESR normal. Restarted [place] and Zanaflex Counseled regarding narcotics. Continue NSAIDs and restart Plaquenil history of autoimmune disease Heating pads Patient has memory problems, has undergone ECT - on Exelon patch Chronic constipation - patient taking Linzess at home. May restart Linzess home medication if available. - PRN bowel regimen. Ct Melodie-Colace DVT prop ambulatory Problem Qualifiers (1) Schizoaffective disorder: Qualified Code: F25.0 - Schizoaffective disorder, bipolar type Josue Jorge MD Jan 13, 2017 08:21
[2017-01-13] MEDS: REMOVE OLD PATCH TD SCH (09:00)
[2017-01-13] MEDS: LOXAPINE 5 MG CAP PO SCH (09:00)
[2017-01-13] MEDS: RIVASTIGMINE 9.5 MG/24 HOUR PATCH T-DERMAL SCH (09:00)
[2017-01-13] MEDS: ATENOLOL 25 MG TAB PO SCH (09:24)
[2017-01-13] MEDS: clonazePAM 1 MG TAB PO SCH ×2 (09:25→12:53)
[2017-01-13] MEDS: metFORMIN HCL 500 MG TAB PO SCH (09:25)
[2017-01-13] MEDS: DOCUSATE SODIUM 50 MG/SENNA 8.6 MG TAB PO SCH (09:25)
[2017-01-13] MEDS: TOPIRAMATE 25 MG TAB PO SCH (09:26)
[2017-01-13] MEDS: FOLIC ACID 1 MG TAB PO SCH (09:26)
[2017-01-13] MEDS: ACETAMINOPHEN 325 MG TAB PO PRN (09:27)
[2017-01-13] MEDS: GABAPENTIN 300 MG CAP PO SCH ×2 (09:27→12:53)
[2017-01-13] MEDS ORDERED: HYDROXYCHLOROQUINE SULFATE 200 MG TAB PO SCH (10:30)
--- NOTE | 2017-01-13 10:46 | HHI.DS ---
Psychiatry Discharge Summary Inpatient Psychiatric care?: Yes Advance Directive: No Reason Not Provided: declined Mental Health AdvanceDirective: No Health Care Proxy: No Admission Admission Date Jan 05, 2017 at 21:46 Admission Diagnosis: (1) Schizoaffective disorder ICD Code: F25.9 Brief History Patient is a 21-year-old white female well-known post multiple prior contacts comes here under [employer] act by the [employer] dated 01/10/17 at 4:48 PM [employer] act reviewed and states that the patient had threatened to kill herself to her mother without giving any idea of how she would do it. Patient seen screened in ED urine toxicology positive for benzodiazepines negative for alcohol. Patient lives at home with her mother and pet dog. She has had a long history mental health issues going back to about 12-13 years old with multiple psychiatric hospitalizations history of suicidal thoughts and self mutilating behavior. Patient seen by a local psychiatrist and Dr. Beltrán was ordered various medications. Patient is unilaterally decreased her Loxitane from 15 mg 4 times a day to once a day. This appears to have led to increase auditory hallucinations of multiple voices quite threatening and insulting to her frightening to her telling her to kill herself. Patient also noted increase in her anxiety related to this. Though she states she has been compliant with her other medications except for the Loxitane. Patient states she has no significant social life he basically stays home is not dating. She never graduated high school stating she was hospitalized multiple 1 time for jumping off a building patient's last hospitalization here was in April 2016. There is a history of mental health issues with her family stating that sister have bipolar disorder. Patient denies any alcohol or other substances of abuse. At the present time patient meets criteria for acute inpatient psychiatric hospitalization. By feel she has capacity to sign her admission and is sign for medications thus I will lift the [employer] act allow her to do so. We will continue her Loxitane 15 mg 4 times a day, her Klonopin 2 mg 3 times a day and her Xanax 0.5 mg every 6 hours when necessary. We'll also continue her other medical medications are to have the hospitalist consulting with us. Hopefully this will be a fairly short stay and patient can return to her family to follow- up outpatient Tobacco Use In Past 30 Days: No Tobacco Past 30 Days Alcohol Use: Never Hospital Course Patient was calm and pleasant and cooperative throughout her hospital stay. She did participate in individual and group therapies. She often had somatic complaints regarding pain and a desire for pain medicine. This was deferred to the physical medicine physician. She also complained of auditory hallucinations and asked for her Loxitane to be titrated up to 50 mg 4 times a day. This was accomplished at the time of discharge. Results Blood Pressure 95 / 63 Vital Signs Date Time Temp Pulse Resp B/P Pulse Ox O2 Delivery O2 Flow Rate FiO2 01/13/17 05:57 98.0 99 18 95/63 95 Laboratory Tests Test 01/12/17 06:55 Platelet Count 140 TH/MM3 (150-450) Mean Platelet Volume 11.1 FL (7.0-11.0) Monocytes (%) (Auto) 9.4 % (0.0-8.0) Summary of Procedures None Pending results at discharge: No Medications # of Antipsychotic meds at D/C: 2 Appropriate >1 Antipsych meds?: 2 Approp Antipsych med options 1 - Minimum of three failed multiple trials of monotherapy. 2 - Documented plan to taper to monotherapy due to previous use of multiple meds OR cross-taper in progress at D/C. 3 - Documentation of augmentation of Clozapine. 4 - Justification other than those listed in allowable values 1-3, document here : Patient has failed more than 3 times on monotherapy antipsychotic medication. She continues to request increasing doses of Loxitane coupled with her closets are ill and this combination appears to be the only method that diminishes her auditory hallucinations. Discharge Discharge Date: Jan 13, 2017 Discharge Diagnosis: (1) Schizoaffective disorder Diagnosis: Principal ICD Code: F25.9 Mental Status Exam at Disch At the time of discharge the patient was calm and cooperative. She had no suicidal or homicidal ideation, plan or intent. She indicated that her auditory hallucinations were improved but wanted yet a higher dose of Loxitane to attempt to stop her hallucinations completely. She did contract for safety and stated that she could resist her auditory hallucinations if they were of a command nature. Insight and judgment were adequate. Pt Condition on Discharge: Stable Discharge Disposition: Discharge Home Discharge Instructions Diet Instructions: As Tolerated, No Restrictions Activities you can perform: Regular-No Restrictions Discharge Time <= 30 minutes Discharge/Advance Care Plan Health Problems: (1) Schizoaffective disorder (2) Generalized anxiety disorder Goals to promote your health * To prevent worsening of your condition and complications * To maintain your health at the optimal level Directions to meet your goals Take your medications as prescribed Follow your dietary instruction Follow activity as directed Keep your appointments as scheduled Take your immunizations and boosters as scheduled If your symptoms worsen call your PCP, if no PCP go to Urgent Care Center or Emergency Room For 18/05 questions related to your inpatient stay or results of tests pending at discharge, please contact Dr. García Araya at Smoking is Dangerous to Your Health. Avoid second hand smoking Problem Qualifiers (1) Schizoaffective disorder: Qualified Code: F25.0 - Schizoaffective disorder, bipolar type García Araya MD Jan 13, 2017 10:46
[2017-01-13] MEDS ORDERED: CYTO5TAB PO (10:52)
[2017-01-13] MEDS ORDERED: KLON2TAB PO (10:52)
[2017-01-13] MEDS ORDERED: NEUR300C PO (10:52)
[2017-01-13] MEDS ORDERED: RIVA9.5T T-DERMAL (10:52)
[2017-01-13] MEDS ORDERED: CLOZ100 PO (10:52)
[2017-01-13] MEDS ORDERED: NORC5TAB PO (10:52)
[2017-01-13] MEDS ORDERED: SYNT25TA PO (10:52)
[2017-01-13] MEDS ORDERED: ATEN50TA PO (10:52)
[2017-01-13] MEDS ORDERED: ASPI81CH CHEW (10:52)
[2017-01-13] MEDS ORDERED: FOLI1TAB4 PO (10:52)
[2017-01-13] MEDS ORDERED: METF1000 PO (10:52)
[2017-01-13] MEDS ORDERED: LOXA50CA PO (10:54)
[2017-01-13] MEDS ORDERED: TOPA50TA7 PO (14:47)
== END 2017-01-13 16:00 | disposition home or self-care (01) | DRG 885 ==
LOC: NEPJ 17:09 → NEDA 21:46 → H260 23:15
PROVIDERS: ADMIT Psychiatry & Neurology Psychiatry; ATTEND Psychiatry & Neurology Psychiatry
DX: F25.9 Schizoaffective disorder, unspecified (principal); E11.9 Type 2 diabetes mellitus without complications; Z79.84 Long term (current) use of oral hypoglycemic drugs; I10 Essential (primary) hypertension; E03.9 Hypothyroidism, unspecified; R00.0 Tachycardia, unspecified; G43.909 Migraine, unspecified, not intractable, without status migrainosus; K59.09 Other constipation; M54.30 Sciatica, unspecified side; G89.29 Other chronic pain; R41.3 Other amnesia; Z81.8 Family history of other mental and behavioral disorders; Z83.3 Family history of diabetes mellitus
CPT/HCPCS: 80048; 80053; 80061; 80307; 83036; 84439; 84443; 84703; 85025; 85652; 99285; Q0163

== ENCOUNTER 2017-09-05 17:08 | Emergency (ER) | payer OTHER, MEDICAID ==
[~2017-09-05] VITALS: Ht 172.7 cm; Wt 55.0 kg
[~2017-09-05 17:08] MED LIST changes: +ASPI-516 CHEW; -ATEN-102 PO; +ATEN50TA PO; -CLOZ100 PO; +CLOZ100T PO; +CYTO5TAB PO; -EXEL4.6D TD; +FOLI1TAB4 PO; -LEVO.025 PO; -LINA290C PO; -LOXA5 PO; +LOXA50CA PO; -METF-324 PO; +METF1000 PO; +NAPR220T95 PO; +NEUR300C PO; +NORC5TAB PO; -OXYB5TAB10 PO; +RIVA9.5T T-DERMAL; +SYNT25TA PO; +TOPA50TA7 PO; -XANA0.5T PO
--- NOTE | 2017-09-05 17:20 | PD ---
HPI Chief Complaint: suicidal ideation Time Seen by Provider: 17:12 Travel History International Travel<30 days: No Contact w/Intl Traveler<30days: No Traveled to known affect area: No History of Present Illness HPI 22-year-old female brought here by PD under Núñez act for suicidal ideation. The patient has history of schizophrenia, TBI. She tells me that she feels angry. She denies harming herself today or taking any toxic ingestions. She told her parents that she was thinking about taking a lot of her pills. She denies any physical complaints. PFSH Past Medical History ADHD: No Blood Disorders: No Bipolar Disorder: Yes (OR BOARDERLINE PERSONALITY) Anxiety: Yes Depression: Yes Heart Rhythm Problems: No Cancer: No Cardiovascular Problems: No High Cholesterol: No Chest Pain: Yes Congestive Heart Failure: No Diabetes: Yes (type 2, per patient history) Diminished Hearing: No Endocrine: No Genitourinary: No Headaches: No Hypertension: Yes Immune Disorder: Yes (LUPUS) Implanted Vascular Access Dvce: No Musculoskeletal: No Neurologic: No Psychiatric: Yes (Schizophrenia, Anxiety Disorder, Borderline Personality Disorder, Bulimia, ) Reproductive: No Respiratory: No Immunizations Current: Yes Migraines: No Schizophrenia: Yes Seizures: No Sleep Apnea: No Thyroid Disease: Yes : 0 Past Surgical History Appendectomy: No Cholecystectomy: No Ear Surgery: No Endocrine Surgery: No Eye Surgery: No Genitourinary Surgery: No Gynecologic Surgery: No Oral Surgery: Yes (TONSILLECTOMY) Tonsillectomy: Yes Other Surgery: Yes (TONSILS AND SURGERY ON RIGHT WRIST ) Social History Alcohol Use: No Tobacco Use: No Substance Use: No Allergies-Medications (Allergen,Severity, Reaction): Coded Allergies: gluten (Unverified Allergy, Severe, 06/10/17) oseltamivir (Unverified Allergy, Severe, Anaphylaxis, 06/10/17) shellfish derived (Unverified Allergy, Severe, 06/10/17) wheat (Unverified Allergy, Severe, 06/10/17) Sulfa (Sulfonamide Antibiotics) (Unverified Allergy, Mild, Hives, 06/10/17) Uncoded Allergies: RADIATION (Allergy, Severe, Respiratory Failure, 01/05/17) NOTHING RADIOACTIVE-CAUSES COMPROMISED IMMUNE SYSTEM. NO X RAYS, NO CAT SCANS GLUTEN (Allergy, Mild, UNKNOWN, 10/08/09) SHELLFISH (Allergy, Mild, UNKNOWN, 10/08/09) WHEAT (Allergy, Mild, UNKNOWN, 10/08/09) Reported Meds & Prescriptions Reported Meds & Active Scripts Active Topamax (Topiramate) 50 Mg Tab 50 Mg PO BID Loxapine (Loxapine Succinate) 50 Mg Cap 50 Mg PO QID Neurontin (Gabapentin) 300 Mg Cap 300 Mg PO TID [place] (Hydrocodone-Acetaminophen) 5-325 mg Tab 1 Tab PO TID PRN Clozaril (Clozapine) 100 Mg Tab 800 Mg PO HS Metformin (Metformin HCl) 1,000 Mg Tab 1,000 Mg PO BIDPC With meals Exelon Patch (Rivastigmine) 9.5 mg/24 hr Patch 1 Patch T-DERMAL DAILY Synthroid (Levothyroxine Sodium) 25 Mcg Tab 25 Mcg PO DAILY Atenolol 50 Mg Tab 50 Mg PO BID Klonopin (Clonazepam) 2 Mg Tab 2 Mg PO TID Reported Tylenol-Codeine #4 (Acetaminophen-Codeine) 300-60 mg Tab 1 Tab PO Q4H PRN Xanax (Alprazolam) 2 Mg Tab 2 Mg PO Q8H PRN Adderall (Amphetamine-Dextroamphetamine) 10 Mg Tab 10 Mg PO BID Avoid late evening doses. Space doses at least 4 to 6 hours if more than once/day dosing. Trulance (Plecanatide) 3 Mg Tablet 1 Tab PO DAILY Trileptal (Oxcarbazepine) 150 Mg Tab 150 Mg PO BID Zofran (Ondansetron HCl) 4 Mg Tab 4 Mg PO Q6HR PRN Amitriptyline (Amitriptyline HCl) 10 Mg Tab 10 Mg PO TID Robaxin (Methocarbamol) 500 Mg Tab 1,000 Mg PO BID PRN Review of Systems Except as stated in HPI: all other systems reviewed are Neg Physical Exam Narrative GENERAL: Well-developed, well-nourished, comfortable, no apparent distress. SKIN: Focused skin assessment warm/dry. Left forearm with several well-healed scars from self-inflicted wounds. HEAD: Atraumatic. Normocephalic. EYES: Pupils equal and round. No scleral icterus. No injection or drainage. ENT: Mucous membranes pink and moist. NECK: Trachea midline. No JVD. CARDIOVASCULAR: Regular rate and rhythm. No murmur appreciated. RESPIRATORY: No accessory muscle use. Clear to auscultation. Breath sounds equal bilaterally. GASTROINTESTINAL: Abdomen soft, non-tender, nondistended. MUSCULOSKELETAL: No obvious deformities. No clubbing. No cyanosis. No edema. NEUROLOGICAL: Awake and alert. No obvious cranial nerve deficits. Motor grossly within normal limits. Normal speech. PSYCHIATRIC: Flat affect. Poor eye contact. Data Data Last Documented VS Vital Signs Date Time Temp Pulse Resp B/P (MAP) Pulse Ox O2 Delivery O2 Flow Rate FiO2 09/05/17 19:38 100 18 87/51 (63) 97 Room Air 09/05/17 17:28 98.3 Orders Orders Complete Blood Count With Diff (09/05/17 17:15) Comprehensive Metabolic Panel (09/05/17 17:15) Urinalysis - C+S If Indicated (09/05/17 17:15) Psych Screen (09/05/17 17:15) Drug Screen, Random Urine (09/05/17 17:15) Alcohol (Ethanol) (09/05/17 17:15) Salicylates (Aspirin) (09/05/17 17:15) Tylenol (Acetaminophen) (09/05/17 17:15) Beta Hcg (Quant/Titer) (09/05/17 17:15) Sodium Chlor 0.9% 1000 Ml Inj (Ns 1000 M (09/05/17 19:45) Labs Laboratory Tests Test 09/05/17 17:40 White Blood Count 6.1 TH/MM3 Red Blood Count 4.31 MIL/MM3 Hemoglobin 12.2 GM/DL Hematocrit 36.7 % Mean Corpuscular Volume 85.1 FL Mean Corpuscular Hemoglobin 28.4 PG Mean Corpuscular Hemoglobin Concent 33.4 % Red Cell Distribution Width 14.0 % Platelet Count 119 TH/MM3 Mean Platelet Volume 11.0 FL Neutrophils (%) (Auto) 41.3 % Lymphocytes (%) (Auto) 44.5 % Monocytes (%) (Auto) 12.3 % Eosinophils (%) (Auto) 1.2 % Basophils (%) (Auto) 0.7 % Neutrophils # (Auto) 2.5 TH/MM3 Lymphocytes # (Auto) 2.7 TH/MM3 Monocytes # (Auto) 0.8 TH/MM3 Eosinophils # (Auto) 0.1 TH/MM3 Basophils # (Auto) 0.0 TH/MM3 CBC Comment DIFF FINAL Differential Comment Blood Urea Nitrogen 12 MG/DL Creatinine 0.63 MG/DL Random Glucose 82 MG/DL Total Protein 6.8 GM/DL Albumin 3.6 GM/DL Calcium Level 8.7 MG/DL Alkaline Phosphatase 73 U/L Aspartate Amino Transf (AST/SGOT) 14 U/L Alanine Aminotransferase (ALT/SGPT) 23 U/L Total Bilirubin 0.2 MG/DL Sodium Level 142 MEQ/L Potassium Level 3.5 MEQ/L Chloride Level 106 MEQ/L Carbon Dioxide Level 27.1 MEQ/L Anion Gap 9 MEQ/L Estimat Glomerular Filtration Rate 116 ML/MIN Human Chorionic Gonadotropin, Quant LESS THAN 1 MIU/ML Salicylates Level LESS THAN 1.7 MG/DL Acetaminophen Level 2.1 MCG/ML Ethyl Alcohol Level LESS THAN 3 MG/DL MDM Medical Decision Making Medical Screen Exam Complete: Yes Emergency Medical Condition: Yes Medical Record Reviewed: Yes Differential Diagnosis Suicidal ideation, toxic ingestion Narrative Course Vital signs reviewed. BP improved to 115/59 after a liter of normal saline IV, and heart rate improved from 107 to 96. Patient has been here in the past and has had low blood pressure on previous visits. CBC is remarkable for platelets 119, otherwise unremarkable. CMP is unremarkable. Beta hCG is negative. Tylenol, alcohol, salicylate levels are negative. The patient is medically cleared for psychiatric evaluation and disposition by them. Diagnosis Primary Impression: Suicidal ideation Rick Rod MD Sep 05, 2017 17:20
[2017-09-05 17:28] VITALS: BP 93/61; PULSE 107; RESP 20; TEMP 98.3; O2SAT 99
[2017-09-05] MEDS ORDERED: ZOFR4TAB PO (17:52)
[2017-09-05] MEDS ORDERED: TRIL150T PO (17:52)
[2017-09-05] MEDS ORDERED: ADDE10 PO (17:52)
[2017-09-05] MEDS ORDERED: XANA2TAB2 PO (17:52)
[2017-09-05] MEDS ORDERED: AMIT10TA6 PO (17:52)
[2017-09-05] MEDS ORDERED: PLEC3TAB PO (17:52)
[2017-09-05] MEDS ORDERED: ROBA500T PO (17:52)
[2017-09-05] MEDS ORDERED: TYLETAB36 PO (17:54)
[2017-09-05 18:33] LABS: AUTOMATED NEUTROPHIL # 2.5 TH/MM3 (1.8-7.7); BASOPHIL % 0.7 % (0.0-2.0); EOSINOPHIL # 0.1 TH/MM3 (0-0.4); EOSINOPHIL % 1.2 % (0.0-4.0); HEMATOCRIT 36.7 % (35.0-46.0); HEMO FLAGS DIFF FINAL; LYMPH % 44.5 % (9.0-44.0); LYMPHOCYTE # 2.7 TH/MM3 (1.0-4.8); MEAN CELL VOLUME 85.1 FL (80.0-100.0); MEAN CORPUSCULAR HEMOGLOBIN 28.4 PG (27.0-34.0); MEAN CORPUSCULAR HGB CONC 33.4 % (32.0-36.0); MONO % 12.3 % (0.0-8.0); NEUT % 41.3 % (16.0-70.0); PLATELET COUNT 119 TH/MM3 (150-450); RED BLOOD COUNT 4.31 MIL/MM3 (4.00-5.30); WHITE BLOOD COUNT 6.1 TH/MM3 (4.0-11.0)
[2017-09-05 18:50] LABS: ALT (GPT) 23 U/L (10-53); ANION GAP 9 MEQ/L (5-15); AST (GOT) 14 U/L (15-37); BICARBONATE 27.1 MEQ/L (21.0-32.0); BLOOD UREA NITROGEN 12 MG/DL (7-18); CHLORIDE 106 MEQ/L (98-107); GLOMERULAR FILTRATION RATE 116 ML/MIN (>89); POTASSIUM 3.5 MEQ/L (3.5-5.1); SODIUM (NA) 142 MEQ/L (136-145)
[2017-09-05 18:52] LABS: ALCOHOL LESS THAN 3 MG/DL (0-5)
[2017-09-05 18:55] LABS: ACETAMINOPHEN 2.1 MCG/ML (10.0-30.0); ALKALINE PHOSPHATASE 73 U/L (45-117); BETA HCG QUANT LESS THAN 1 MIU/ML (0-5); TOTAL BILIRUBIN ADULT 0.2 MG/DL (0.2-1.0)
[2017-09-05 19:38] VITALS: BP 87/51; PULSE 100; RESP 18; O2SAT 97
[2017-09-05] MEDS ORDERED: SODIUM CHLOR 0.9% 1000 ML INJ 1,000 ML IV ONE (19:45)
[2017-09-05 20:46] VITALS: BP 115/59
[2017-09-05 22:22] VITALS: BP 107/61; PULSE 83; RESP 17; TEMP 97.9; O2SAT 98
[2017-09-06 05:44] LABS: BACTERIA, URINE RARE /hpf; BLOOD, URINE NEG (NEG); COMMENT (UR) CULT NOT INDICATED; CULTURE IF INDICATED CULT NOT INDICATED; GLUCOSE,URINE NEG (NEG); KETONE, URINE NEG (NEG); NITRITE,URINE NEG (NEG); PH, URINE 6.5 (5.0-8.5); SQUAMOUS EPITHELIAL CELL URINE 3 /hpf (0-5); URINE COLOR YELLOW (YELLW/STRAW)
[2017-09-06 06:59] VITALS: BP 87/52; PULSE 78; RESP 15; TEMP 98.9; O2SAT 99
--- NOTE | 2017-09-06 09:56 | PD ---
Physical Exam Date Seen by Provider: Sep 06, 2017 Time Seen by Provider: 09:59 Narrative 22-year-old female presented to our facility under Núñez act. Patient has been cleared medically and psychiatrically from our facility. The Núñez act has been lifted. I have been asked to disposition this patient. Data Data Last Documented VS Vital Signs Date Time Temp Pulse Resp B/P (MAP) Pulse Ox O2 Delivery O2 Flow Rate FiO2 09/06/17 06:59 98.9 78 15 87/52 (64) 99 09/05/17 22:22 Room Air Orders Orders Complete Blood Count With Diff (09/05/17 17:15) Comprehensive Metabolic Panel (09/05/17 17:15) Urinalysis - C+S If Indicated (09/05/17 17:15) Psych Screen (09/05/17 17:15) Drug Screen, Random Urine (09/05/17 17:15) Alcohol (Ethanol) (09/05/17 17:15) Salicylates (Aspirin) (09/05/17 17:15) Tylenol (Acetaminophen) (09/05/17 17:15) Beta Hcg (Quant/Titer) (09/05/17 17:15) Sodium Chlor 0.9% 1000 Ml Inj (Ns 1000 M (09/05/17 19:45) Diet Regular Basic (09/06/17 Breakfast) Ed Discharge Order (09/06/17 09:56) Labs Laboratory Tests Test 09/05/17 17:40 09/06/17 05:21 White Blood Count 6.1 TH/MM3 Red Blood Count 4.31 MIL/MM3 Hemoglobin 12.2 GM/DL Hematocrit 36.7 % Mean Corpuscular Volume 85.1 FL Mean Corpuscular Hemoglobin 28.4 PG Mean Corpuscular Hemoglobin Concent 33.4 % Red Cell Distribution Width 14.0 % Platelet Count 119 TH/MM3 Mean Platelet Volume 11.0 FL Neutrophils (%) (Auto) 41.3 % Lymphocytes (%) (Auto) 44.5 % Monocytes (%) (Auto) 12.3 % Eosinophils (%) (Auto) 1.2 % Basophils (%) (Auto) 0.7 % Neutrophils # (Auto) 2.5 TH/MM3 Lymphocytes # (Auto) 2.7 TH/MM3 Monocytes # (Auto) 0.8 TH/MM3 Eosinophils # (Auto) 0.1 TH/MM3 Basophils # (Auto) 0.0 TH/MM3 CBC Comment DIFF FINAL Differential Comment Blood Urea Nitrogen 12 MG/DL Creatinine 0.63 MG/DL Random Glucose 82 MG/DL Total Protein 6.8 GM/DL Albumin 3.6 GM/DL Calcium Level 8.7 MG/DL Alkaline Phosphatase 73 U/L Aspartate Amino Transf (AST/SGOT) 14 U/L Alanine Aminotransferase (ALT/SGPT) 23 U/L Total Bilirubin 0.2 MG/DL Sodium Level 142 MEQ/L Potassium Level 3.5 MEQ/L Chloride Level 106 MEQ/L Carbon Dioxide Level 27.1 MEQ/L Anion Gap 9 MEQ/L Estimat Glomerular Filtration Rate 116 ML/MIN Human Chorionic Gonadotropin, Quant LESS THAN 1 MIU/ML Salicylates Level LESS THAN 1.7 MG/DL Acetaminophen Level 2.1 MCG/ML Ethyl Alcohol Level LESS THAN 3 MG/DL Urine Color YELLOW Urine Turbidity HAZY Urine pH 6.5 Urine Specific [place] 1.018 Urine Protein TRACE mg/dL Urine Glucose (UA) NEG mg/dL Urine Ketones NEG mg/dL Urine Occult Blood NEG Urine Nitrite NEG Urine Bilirubin NEG Urine Urobilinogen LESS THAN 2.0 MG/DL Urine Leukocyte Esterase NEG Urine RBC 1 /hpf Urine WBC 1 /hpf Urine Squamous Epithelial Cells 3 /hpf Urine Bacteria RARE /hpf Microscopic Urinalysis Comment CULT NOT INDICATED Urine Opiates Screen POS Urine Barbiturates Screen NEG Urine Amphetamines Screen POS Urine Benzodiazepines Screen POS Urine Cocaine Screen NEG Urine Cannabinoids Screen NEG MDM Supervised Visit with KELIN: Yes Differential Diagnosis Depression versus suicidal ideation versus anxiety versus adjustment disorder versus mood disorder versus bipolar disorder versus schizophrenia versus paranoid disorder versus psychosis versus substance abuse versus alcohol abuse versus alcohol induced psychosis versus homicidality addition versus cutting versus personality disorder Narrative Course 22-year-old patient cleared medically and psychiatrically from her facility. Patient was under Núñez act that has been lifted. Patient denies any homicidal suicidal ideations. Patient will be discharged home with instructions to follow -up with act or return to the emergency Department with any worsening condition. Diagnosis Primary Impression: Suicidal ideation Referrals: [facility] (Out patient) Patient Instructions: General Instructions, Suicide Prevention for Adults (ED) Additional Instruction: Please return to emergency department if your symptoms return or worsen. Follow up with your Wallace Gonzalez/caleb Disposition: 01 DISCHARGE HOME Condition: Stable DeenaMelody Sep 06, 2017 09:56
--- NOTE | 2017-09-06 10:25 | PD.PSY.CON ---
Provisional Diagnosis Admission Date [place] I. Adjustment disorder with disturbance of conduct, schizophrenia, bipolar disorder , schizoaffective disorder, anxiety [place] II. Unspecified personality disorder, strong cluster B personality traits [place] III. Diabetes, A. fib, hypothyroidism, chronic lower back pain [place] IV. Multiple psychiatric hospitalizations, poor impulse control [place] V. 55 History of Present Illness Service Psychiatry Consult Requested By ER Reason for Consult [facility] Primary Care Physician Unknown HPI The patient is a 22-year-old woman, domiciled with her mother in [place], unemployed, single, supported by [facility], well known by this service, with an extensive psychiatric history of schizophrenia, bipolar disorder, ADHD, anxiety, poor impulse control, aggressive behavior, multiple suicidal attempts, self cutting behavior with no SI, multiple psychiatric hospitalizations, the last hospitalization was here in [place] under the care of Dr. Araya December 2016 , documentation review, she has an established outpatient care with Dr. Beltrán, she is in multiple psychotropics including clonazepam 2 mg twice a day, Xanax 1 mg 3 times a day, Trileptal, clozapine 800 mg, loxapine 5 mg, Adderall 10 mg twice a day, she also has medical history hypothyroidism, A. fib, diabetes mellitus, lower back pain, who was brought to the ER under Núñez caleb due to suicidal ideation home after argument with her mother. On psychiatric evaluation in the ER the patient is found calm, cooperative, but very manipulative and demanding. The patient says that she had an argument with her mother at home "because I have a very short temper and that cannot tolerate contradictions and confrontations". She says that she has been having poor impulse control and chronic suicidal thoughts since she is a child. She says that she needs her clonazepam and Xanax increased, but her outpatient psychiatrist has been refusing this. She says that her outpatient psychiatrist is no really helping her and she would like her medications to be adjusted today. At this moment she says that she feels much better, she denies suicidal and homicidal ideation, she denies visual and auditory hallucinations. He reports good mood, denies depressive symptoms, she denies anxiety, she is logical, coherent and relevant. When I explained her that her medication should be decreased or augmented by her outpatient psychiatrist and we will be unable to do it patient became verbally hostile, loud, disrespectful stating that she is going to hurt herself and to be on me. Patient came out of the room and start pacing banging her head into navarrete, but at the end she was able to be verbally redirected. Patient denies the use of alcohol and illicit drugs. Review of Systems Constitutional: DENIES: Diaphoretic episodes, Fatigue, Fever, Weight gain, Weight loss, Chills, Dizziness, Change in appetite, Night Sweats Endocrine: DENIES: Abnorml menstrual pattern, Heat/cold intolerance, Polydipsia , Polyuria, Polyphagia Eyes: DENIES: Blurred vision, Diplopia, Eye inflammation, Eye pain, Vision loss , Photosensitivity, Double Vision Ears, nose, mouth, throat: DENIES: Tinnitus, Hearing loss, Vertigo, Nasal discharge, Oral lesions, Throat pain, Hoarseness, Ear Pain, Running Nose, Epistaxis, Sinus Pain, Toothache, Odynophagia Respiratory: DENIES: Apneas, Cough, Snoring, Wheezing, Hemoptysis, Sputum production, Shortness of breath Cardiovascular: DENIES: Chest pain, Palpitations, Syncope, Dyspnea on Exertion , PND, Lower Extremity Edema, Orthopnea, Claudication Gastrointestinal: DENIES: Abdominal pain, Black stools, Bloody stools, Constipation, Diarrhea, Nausea, Vomiting, Difficulty Swallowing, Anorexia Genitourinary: DENIES: Abnormal vaginal bleeding, Dysmenorrhea, Dyspareunia, Sexual dysfunction, Urinary frequency, Urinary incontinence, Urgency, Hematuria , Dysuria, Nocturia, Vaginal discharge Musculoskeletal: DENIES: Joint pain, Muscle aches, Stiffness, Joint Swelling, Back pain, Neck pain Integumentary: DENIES: Abnormal pigmentation, Pruritus, Rash, Nail changes, Breast masses, Breast skin changes, Nipple discharge Hematologic/lymphatic: DENIES: Bruising, Lymphadenopathy Immunologic/allergic: DENIES: Eczema, Urticaria Neurologic: DENIES: Abnormal gait, Headache, Localized weakness, Paresthesias, Seizures, Speech Problems, Tremor, Poor Balance Psychiatric: DENIES: Anxiety, Confusion, Mood changes, Depression, Hallucinations, Agitation, Suicidal Ideation, Homicidal Ideation, Delusions Past Family Social History Coded Allergies: gluten (Unverified Allergy, Severe, 06/10/17) oseltamivir (Unverified Allergy, Severe, Anaphylaxis, 06/10/17) shellfish derived (Unverified Allergy, Severe, 06/10/17) wheat (Unverified Allergy, Severe, 06/10/17) Sulfa (Sulfonamide Antibiotics) (Unverified Allergy, Mild, Hives, 06/10/17) Uncoded Allergies: RADIATION (Allergy, Severe, Respiratory Failure, 01/05/17) NOTHING RADIOACTIVE-CAUSES COMPROMISED IMMUNE SYSTEM. NO X RAYS, NO CAT SCANS GLUTEN (Allergy, Mild, UNKNOWN, 10/08/09) SHELLFISH (Allergy, Mild, UNKNOWN, 10/08/09) WHEAT (Allergy, Mild, UNKNOWN, 10/08/09) Active Scripts Topiramate (Topamax) 50 Mg Tab, 50 MG PO BID for Control Seizures, #60 TAB 0 Refills Prov:García Araya MD 01/13/17 Loxapine (Loxapine) 50 Mg Cap, 50 MG PO QID, #120 CAP 0 Refills Prov:García Araya MD 01/13/17 Gabapentin (Neurontin) 300 Mg Cap, 300 MG PO TID, #90 CAP 0 Refills Prov:García Araya MD 01/13/17 Hydrocodone-Acetaminophen (Achille) 5-325 mg Tab, 1 TAB PO TID Y for PAIN, #60 TAB 0 Refills Prov:García Araya MD 01/13/17 Clozapine (Clozaril) 100 Mg Tab, 800 MG PO HS for Schizophrenia, #240 TAB 0 Refills Prov:García Araya MD 01/13/17 Metformin (Metformin) 1,000 Mg Tab, 1000 MG PO BIDPC for Blood Sugar Management , #60 TAB 0 Refills With meals Prov:García Araya MD 01/13/17 Rivastigmine Patch (Exelon Patch) 9.5 mg/24 hr Patch, 1 PATCH T-DERMAL DAILY for Dementia, #30 PATCH 0 Refills Prov:García Araya MD 01/13/17 Levothyroxine (Synthroid) 25 Mcg Tab, 25 MCG PO DAILY for Thyroid, #30 TAB 0 Refills Prov:García Araya MD 01/13/17 Atenolol (Atenolol) 50 Mg Tab, 50 MG PO BID for Blood Pressure Management, #14 TAB 0 Refills Prov:García Araya MD 01/13/17 Clonazepam (Klonopin) 2 Mg Tab, 2 MG PO TID, #90 TAB 0 Refills Prov:García Araya MD 01/13/17 Reported Medications Acetaminophen-Codeine (Tylenol-Codeine #4) 300-60 mg Tab, 1 TAB PO Q4H Y for PAIN, TAB 0 Refills 09/05/17 Alprazolam (Xanax) 2 Mg Tab, 2 MG PO Q8H Y for ANXIETY, TAB 0 Refills 09/05/17 Amphetamine-Dextroamphetamine (Adderall) 10 Mg Tab, 10 MG PO BID for Hyperactivity Control, TAB 0 Refills Avoid late evening doses. Space doses at least 4 to 6 hours if more than once/day dosing. 09/05/17 Plecanatide (Trulance) 3 Mg Tablet, 1 TAB PO DAILY 09/05/17 Oxcarbazepine (Trileptal) 150 Mg Tab, 150 MG PO BID, TAB 0 Refills 09/05/17 Ondansetron (Zofran) 4 Mg Tab, 4 MG PO Q6HR Y for NAUSEA OR VOMITING, TAB 0 Refills 09/05/17 Amitriptyline (Amitriptyline) 10 Mg Tab, 10 MG PO TID, TAB 09/05/17 Methocarbamol (Robaxin) 500 Mg Tab, 1000 MG PO BID Y for PAIN SCALE 1 TO 10, TAB 0 Refills 09/05/17 Discontinued Scripts Aspirin (Aspirin) 81 Mg Chew, 324 MG CHEW DAILY, #30 TAB 0 Refills Prov:García Araya MD 01/13/17 Family Psych History Patient denies family psychiatric history Social History Patient was born and raised in [place], she lives with her mother, she is single, unemployed, supported by [employer], her highest level of education is high school Physical Exam Vital Signs Vital Signs Date Time Temp Pulse Resp B/P (MAP) Pulse Ox O2 Delivery O2 Flow Rate FiO2 09/06/17 06:59 98.9 78 15 87/52 (64) 99 09/05/17 22:22 Room Air Lab Results Test 09/05/17 17:40 09/06/17 05:21 White Blood Count 6.1 TH/MM3 Red Blood Count 4.31 MIL/MM3 Hemoglobin 12.2 GM/DL Hematocrit 36.7 % Mean Corpuscular Volume 85.1 FL Mean Corpuscular Hemoglobin 28.4 PG Mean Corpuscular Hemoglobin Concent 33.4 % Red Cell Distribution Width 14.0 % Platelet Count 119 TH/MM3 Mean Platelet Volume 11.0 FL Neutrophils (%) (Auto) 41.3 % Lymphocytes (%) (Auto) 44.5 % Monocytes (%) (Auto) 12.3 % Eosinophils (%) (Auto) 1.2 % Basophils (%) (Auto) 0.7 % Neutrophils # (Auto) 2.5 TH/MM3 Lymphocytes # (Auto) 2.7 TH/MM3 Monocytes # (Auto) 0.8 TH/MM3 Eosinophils # (Auto) 0.1 TH/MM3 Basophils # (Auto) 0.0 TH/MM3 CBC Comment DIFF FINAL Differential Comment Blood Urea Nitrogen 12 MG/DL Creatinine 0.63 MG/DL Random Glucose 82 MG/DL Total Protein 6.8 GM/DL Albumin 3.6 GM/DL Calcium Level 8.7 MG/DL Alkaline Phosphatase 73 U/L Aspartate Amino Transf (AST/SGOT) 14 U/L Alanine Aminotransferase (ALT/SGPT) 23 U/L Total Bilirubin 0.2 MG/DL Sodium Level 142 MEQ/L Potassium Level 3.5 MEQ/L Chloride Level 106 MEQ/L Carbon Dioxide Level 27.1 MEQ/L Anion Gap 9 MEQ/L Estimat Glomerular Filtration Rate 116 ML/MIN Human Chorionic Gonadotropin, Quant LESS THAN 1 MIU/ML Salicylates Level LESS THAN 1.7 MG/DL Acetaminophen Level 2.1 MCG/ML Ethyl Alcohol Level LESS THAN 3 MG/DL Urine Color YELLOW Urine Turbidity HAZY Urine pH 6.5 Urine Specific [place] 1.018 Urine Protein TRACE mg/dL Urine Glucose (UA) NEG mg/dL Urine Ketones NEG mg/dL Urine Occult Blood NEG Urine Nitrite NEG Urine Bilirubin NEG Urine Urobilinogen LESS THAN 2.0 MG/DL Urine Leukocyte Esterase NEG Urine RBC 1 /hpf Urine WBC 1 /hpf Urine Squamous Epithelial Cells 3 /hpf Urine Bacteria RARE /hpf Microscopic Urinalysis Comment CULT NOT INDICATED Urine Opiates Screen POS Urine Barbiturates Screen NEG Urine Amphetamines Screen POS Urine Benzodiazepines Screen POS Urine Cocaine Screen NEG Urine Cannabinoids Screen NEG Mental Status Examination Appearance: Appropriate Consciousness: Alert Orientation: x4 Motor Activity: Normal gait Speech: Unremarkable Language: Adequate Fund of Knowledge: Adequate Attention and Concentration: Adequate Memory: Unremarkable Mood: Angry Affect: Irritable Thought Process & Associations: Intact Thought Content: Appropriate Hallucination Type: None Delusion Type: None Suicidal Ideation: No Suicidal Plan: No Suicidal Intention: No Homicidal Ideation: No Homicidal Plan: No Homicidal Intention: No Insight: Fair Judgment: Impulsive Assessment & Plan Problem List: (1) Adjustment disorder with mixed disturbance of emotions and conduct ICD Codes: F43.25 - Adjustment disorder with mixed disturbance of emotions and conduct Assessment & Plan: On psychiatric evaluation today the patient initially is calm, cooperative and denies symptomatology of depression, anxiety, luciano or psychosis. The patient describes herself as a very impulsive and short temper person with severe anger management issues. She says that this morning she had an argument with her mother and she basically Núñez act to herself in order to come to the ER and had her medication increased. At the moment of the evaluation the patient denies suicidal and homicidal ideation, she denies visual and auditory hallucinations. As the patient is indicated that no medications will be increased and for medication management she needs to speak with outpatient psychiatry, she became verbally hostile and agitated, but she was finally redirected. Patient was recommended to continue her current psychotropic regimen. She will continue her psychiatric follow-up as an outpatient with Dr. Beltrán. She does not meet criteria for psychiatric admission. Given her psychiatric history and based in my evaluation today and interaction with the patient I have no doubt that this patient, ideationally to her reported psychiatric diagnosis, carries a cluster B personality traits to be highly consider with borderline personality disorder. Brief supportive psychotherapy and psychoeducation provided. Núñez act will be lifted. Assessment & Plan Estimated LOS: Malick Zhou MD Sep 06, 2017 10:25
== END 2017-09-06 13:15 | disposition home or self-care (01) ==
LOC: NEPD 17:08 → NEPJ 09-06 13:15
DX: R45.851 Suicidal ideations (principal); F20.9 Schizophrenia, unspecified; F31.9 Bipolar disorder, unspecified; F41.9 Anxiety disorder, unspecified; F60.3 Borderline personality disorder; E11.9 Type 2 diabetes mellitus without complications; I10 Essential (primary) hypertension; Z87.820 Personal history of traumatic brain injury; Z79.899 Other long term (current) drug therapy
CPT/HCPCS: 80053; 80307; 81001; 84702; 85025; 96360; 96361; 99284; J7030

== ENCOUNTER 2017-12-22 19:09 | Inpatient (IN) | payer OTHER, MEDICAID, MEDICARE ==
[~2017-12-22] VITALS: Ht 170.2 cm; Wt 47.7 kg
[~2017-12-22 19:09] MED LIST changes: +ADDE10 PO; +AMIT10TA6 PO; -ASPI-516 CHEW; -CYTO5TAB PO; -FOLI1TAB4 PO; -NAPR220T95 PO; +PLEC3TAB PO; +ROBA500T PO; +TRIL150T PO; +TYLETAB36 PO; +XANA2TAB2 PO; +ZOFR4TAB PO
[2017-12-22] MEDS ORDERED: LINA290C PO (19:29)
[2017-12-22] MEDS ORDERED: LIOT50 PO (19:29)
[2017-12-22] MEDS ORDERED: SODIUM CHLORIDE 0.9% FLUSH 10 ML FLUSH IVF PRN (19:45)
[2017-12-22] MEDS ORDERED: SODIUM CHLOR 0.9% 1000 ML INJ 1,000 ML IV ONE (19:45)
[2017-12-22 19:55] VITALS: BP 99/63; PULSE 82; RESP 16; TEMP 98.2; O2SAT 100
[2017-12-22 20:06] LABS: AUTOMATED NEUTROPHIL # 2.7 TH/MM3 (1.8-7.7); BASOPHIL % 0.7 % (0.0-2.0); EOSINOPHIL # 0.1 TH/MM3 (0-0.4); EOSINOPHIL % 1.2 % (0.0-4.0); HEMATOCRIT 37.5 % (35.0-46.0); HEMOGLOBIN 12.9 GM/DL (11.6-15.3); LYMPH % 44.6 % (9.0-44.0); LYMPHOCYTE # 2.9 TH/MM3 (1.0-4.8); MEAN CORPUSCULAR HEMOGLOBIN 29.3 PG (27.0-34.0); MEAN CORPUSCULAR HGB CONC 34.5 % (32.0-36.0); MEAN PLATELET VOLUME 9.6 FL (7.0-11.0); MONO % 12.9 % (0.0-8.0); MONOCYTE # 0.8 TH/MM3 (0-0.9); NEUT % 40.6 % (16.0-70.0); PLATELET COUNT 153 TH/MM3 (150-450); RED BLOOD COUNT 4.41 MIL/MM3 (4.00-5.30); RED CELL DISTRIBUTION WIDTH 13.5 % (11.6-17.2); WHITE BLOOD COUNT 6.5 TH/MM3 (4.0-11.0)
[2017-12-22 20:07] LABS: BACTERIA, URINE RARE /hpf; BILIRUBIN, URINE NEG (NEG); BLOOD, URINE NEG (NEG); GLUCOSE,URINE NEG (NEG); KETONE, URINE NEG (NEG); MUCUS URINE FEW /lpf (OCC); NITRITE,URINE NEG (NEG); PH, URINE 6.5 (5.0-8.5); SQUAMOUS EPITHELIAL CELL URINE 11 /hpf (0-5); URINE COLOR YELLOW (YELLW/STRAW); URINE LEUKOCYTE ESTERASE MOD (NEG)
[2017-12-22 20:21] LABS: ALBUMIN 3.5 GM/DL (3.4-5.0); AST (GOT) 11 U/L (15-37); BICARBONATE 29.7 MEQ/L (21.0-32.0); BLOOD UREA NITROGEN 11 MG/DL (7-18); CALCIUM 8.8 MG/DL (8.5-10.1); CHLORIDE 106 MEQ/L (98-107); CREATININE 0.54 MG/DL (0.50-1.00); GLOMERULAR FILTRATION RATE 139 ML/MIN (>89); GLUCOSE,RANDOM 81 MG/DL (74-106); SODIUM (NA) 142 MEQ/L (136-145)
[2017-12-22 20:22] LABS: ALT (GPT) 18 U/L (10-53)
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
[2017-12-22 20:32] LABS: ACETAMINOPHEN LESS THAN 2.0 MCG/ML (10.0-30.0); ALKALINE PHOSPHATASE 81 U/L (45-117); TOTAL BILIRUBIN ADULT 0.2 MG/DL (0.2-1.0); TOTAL PROTEIN 6.9 GM/DL (6.4-8.2)
[2017-12-22 22:14] VITALS: BP 100/58; PULSE 82
[2017-12-23 02:12] VITALS: BP 98/64; PULSE 69; RESP 18; O2SAT 97
[2017-12-23 06:48] VITALS: BP 99/60; PULSE 85; RESP 16; O2SAT 98
[2017-12-23] MEDS ORDERED: ALUMINUM/MAGNESIUM/SIMETH 30 ML CUP PO PRN (08:30)
[2017-12-23] MEDS ORDERED: LORazepam 1 MG TAB PO PRN (08:30)
[2017-12-23] MEDS ORDERED: LORazepam 2 MG/ML VIAL IM PRN ×2 (08:30)
[2017-12-23] MEDS ORDERED: LORazepam 0.5 MG TAB PO PRN (08:30)
[2017-12-23] MEDS ORDERED: MAGNESIUM HYDROXIDE SUSP 30 ML CUP PO PRN (08:30)
[2017-12-23] MEDS ORDERED: METHOCARBAMOL 500 MG TAB PO PRN (08:45)
[2017-12-23] MEDS: NICOTINE 21 MG/24 HR PATCH T-DERMAL SCH (09:00)
[2017-12-23] MEDS: metFORMIN HCL 500 MG TAB PO SCH ×2 (10:02→18:00)
[2017-12-23] MEDS: OXcarbazepine 150 MG TAB PO SCH ×2 (10:09→20:25)
[2017-12-23] MEDS: ATENOLOL 50 MG TAB PO SCH ×2 (10:09→20:26)
[2017-12-23] MEDS: LEVOTHYROXINE SODIUM 25 MCG TAB PO SCH (10:09)
[2017-12-23] MEDS: RIVASTIGMINE 9.5 MG/24 HOUR PATCH T-DERMAL SCH (10:10)
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
[2017-12-23 12:57] VITALS: BP 101/64; PULSE 100; RESP 18; TEMP 99; O2SAT 98
[2017-12-23] MEDS: ACETAMINOPHEN 325 MG TAB PO PRN (14:34)
[2017-12-23 16:03] VITALS: BP 93/53; PULSE 95; RESP 18; TEMP 98.1; O2SAT 99
[2017-12-23] MEDS: cloZAPine 100 MG TAB PO SCH (20:26)
[2017-12-23] MEDS: REMOVE OLD NICODERM (NICOTINE) PATCH T-DERMAL SCH (20:26)
[2017-12-24] MEDS: LEVOTHYROXINE SODIUM 25 MCG TAB PO SCH (05:21)
[2017-12-24 05:50] VITALS: BP 100/56; PULSE 86; RESP 16; TEMP 97.5; O2SAT 100
[2017-12-24 06:15] LABS: BICARBONATE 29.2 MEQ/L (21.0-32.0); BLOOD UREA NITROGEN 13 MG/DL (7-18); CHLORIDE 106 MEQ/L (98-107); CHOLESTEROL 154 MG/DL (120-200); GLOMERULAR FILTRATION RATE 196 ML/MIN (>89); GLUCOSE,RANDOM 94 MG/DL (74-106); SODIUM (NA) 142 MEQ/L (136-145)
[2017-12-24 06:17] LABS: CHOLESTEROL/ HDL RATIO 3.71 RATIO; HDL CHOLESTEROL 41.4 MG/DL (40.0-60.0); LDL CHOLESTEROL 89 MG/DL (0-99); TRIGLYCERIDES 116 MG/DL (42-150)
[2017-12-24] MEDS: RIVASTIGMINE 9.5 MG/24 HOUR PATCH T-DERMAL SCH (09:00)
[2017-12-24] MEDS: NICOTINE 21 MG/24 HR PATCH T-DERMAL SCH (09:00)
[2017-12-24] MEDS: metFORMIN HCL 500 MG TAB PO SCH ×2 (10:07→18:00)
[2017-12-24] MEDS: OXcarbazepine 150 MG TAB PO SCH ×2 (10:07→20:24)
[2017-12-24] MEDS: ATENOLOL 50 MG TAB PO SCH ×2 (10:08→20:46)
[2017-12-24 11:01] LABS: HEMOGLOBIN A1C 5.1 % (4.3-6.0)
[2017-12-24] MEDS: clonazePAM 1 MG TAB PO SCH ×2 (13:00→18:00)
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
[2017-12-24] MEDS ORDERED: DEXTROAMPHETAMINE/AMPHETAMINE 10 MG TAB PO SCH (15:00)
[2017-12-24 18:16] VITALS: BP 92/46; PULSE 99; RESP 18; TEMP 97.5; O2SAT 98
[2017-12-24] MEDS: cloZAPine 100 MG TAB PO SCH (20:24)
[2017-12-24] MEDS: REMOVE OLD NICODERM (NICOTINE) PATCH T-DERMAL SCH (20:46)
[2017-12-25] MEDS: LEVOTHYROXINE SODIUM 25 MCG TAB PO SCH (05:46)
[2017-12-25 06:22] VITALS: BP 98/56; PULSE 81; RESP 16; TEMP 97.7; O2SAT 99
[2017-12-25] MEDS: metFORMIN HCL 500 MG TAB PO SCH ×2 (08:55→17:50)
[2017-12-25] MEDS: LIOTHYRONINE SODIUM 25 MCG TAB PO SCH (08:56)
[2017-12-25] MEDS: clonazePAM 1 MG TAB PO SCH ×3 (08:56→17:50)
[2017-12-25] MEDS: DEXTROAMPHETAMINE/AMPHETAMINE 10 MG TAB PO SCH ×2 (08:56→15:01)
[2017-12-25] MEDS: RIVASTIGMINE 9.5 MG/24 HOUR PATCH T-DERMAL SCH (08:58)
[2017-12-25] MEDS: ATENOLOL 50 MG TAB PO SCH ×3 (08:58→21:20)
[2017-12-25] MEDS: OXcarbazepine 150 MG TAB PO SCH ×2 (08:58→21:21)
[2017-12-25] MEDS ORDERED: [UNRECOGNIZED DRUG - OTHER] PO SCH (09:00)
[2017-12-25] MEDS ORDERED: NON-FORMULARY DRUG (Linaclotide (Linzess) 290 MCG) PO SCH (09:00)
[2017-12-25] MEDS: NICOTINE 21 MG/24 HR PATCH T-DERMAL SCH (09:00)
[2017-12-25] MEDS ORDERED: DEXTROSE 50% IN WATER 50 ML VIAL(D50) IV PUSH PRN (09:15)
[2017-12-25] MEDS ORDERED: GLUCAGON 1 MG/ML VIAL OTHER PRN (09:15)
--- NOTE | 2017-12-25 11:58 | HHI.PYPN ---
Subjective Remarks Patient seen for follow-up, chart reviewed. Discussion with nursing staff reported that the patient has been out for meals now, noted to be less irritable. Patient was found sitting in day room, reports feeling "better" but continues to feel depressed "5 out of 10" (10 being its worst), she denies any suicidal ideations. Patient was reluctant to talk about her recent spending spree with her mother's credit card which may have contributed her mood. Review of Systems Except as stated in HPI: all other systems reviewed are Neg Mental Status Examination Appearance: Disheveled Consciousness: Alert Orientation: x4 Motor Activity: Normal gait Speech: Unremarkable Language: Adequate Fund of Knowledge: Adequate Attention and Concentration: Adequate Memory: Unremarkable Mood: Sad Affect: Sad, Other (Tearful) Thought Process & Associations: Intact Thought Content: Appropriate Hallucination Type: Auditory (Command auditory hallucinations to kill herself) Delusion Type: None Suicidal Ideation: No Suicidal Plan: No Suicidal Intention: No Homicidal Ideation: No Homicidal Plan: No Homicidal Intention: No Insight: Poor Judgment: Poor Results Vitals/IOs Vital Signs Date Time Temp Pulse Resp B/P (MAP) Pulse Ox O2 Delivery O2 Flow Rate FiO2 12/25/17 06:22 97.7 81 16 98/56 (70) 99 12/23/17 06:48 Room Air Assessment & Plan Problem List: (1) Schizophrenia ICD Codes: F20.9 - Schizophrenia, unspecified Status: Acute Assessment & Plan Patient continues with depressed mood, no SI, guarded to circumstances that led to her admission. Continue current treatment and monitor mood and behavior. Collateral from patient's outpatient psychiatrist pending, previous attmepts have been unsuccessful. Discharge planning in progress. Justification for Cont. Inpt. At risk for further decompensation at lower level of care. Discharge Planning Back to mother's residence Rafa Lynch MD Dec 25, 2017 11:57
[2017-12-25] MEDS: INSULIN ASPART SUPPLEMENTAL SCALE SQ SCH ×3 (12:00→21:00)
[2017-12-25 17:08] VITALS: BP 97/63; PULSE 101; RESP 18; TEMP 98.1; O2SAT 97
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
[2017-12-25] MEDS: REMOVE OLD NICODERM (NICOTINE) PATCH T-DERMAL SCH (21:00)
[2017-12-25] MEDS: cloZAPine 100 MG TAB PO SCH (21:22)
[2017-12-26] MEDS: LEVOTHYROXINE SODIUM 25 MCG TAB PO SCH (06:08)
[2017-12-26 06:20] VITALS: BP 96/65; PULSE 86; RESP 18; TEMP 98.3; O2SAT 97
[2017-12-26] MEDS: INSULIN ASPART SUPPLEMENTAL SCALE SQ SCH ×4 (08:00→20:58)
[2017-12-26] MEDS: clonazePAM 1 MG TAB PO SCH ×3 (08:10→17:39)
[2017-12-26] MEDS: metFORMIN HCL 500 MG TAB PO SCH ×2 (08:10→17:39)
[2017-12-26] MEDS: LIOTHYRONINE SODIUM 25 MCG TAB PO SCH (08:10)
[2017-12-26] MEDS: OXcarbazepine 150 MG TAB PO SCH ×2 (08:11→20:57)
[2017-12-26] MEDS: DEXTROAMPHETAMINE/AMPHETAMINE 10 MG TAB PO SCH ×2 (08:14→15:00)
[2017-12-26] MEDS: RIVASTIGMINE 9.5 MG/24 HOUR PATCH T-DERMAL SCH (09:00)
[2017-12-26] MEDS: ATENOLOL 50 MG TAB PO SCH ×2 (09:00→20:58)
[2017-12-26] MEDS: NICOTINE 21 MG/24 HR PATCH T-DERMAL SCH (09:00)
[2017-12-26 09:32] LABS: AUTOMATED NEUTROPHIL # 2.7 TH/MM3 (1.8-7.7); BASOPHIL % 0.5 % (0.0-2.0); EOSINOPHIL % 0.5 % (0.0-4.0); HEMATOCRIT 39.4 % (35.0-46.0); HEMOGLOBIN 13.4 GM/DL (11.6-15.3); LYMPH % 35.5 % (9.0-44.0); LYMPHOCYTE # 1.9 TH/MM3 (1.0-4.8); MEAN CELL VOLUME 83.9 FL (80.0-100.0); MEAN CORPUSCULAR HEMOGLOBIN 28.6 PG (27.0-34.0); MEAN PLATELET VOLUME 9.6 FL (7.0-11.0); MONO % 11.7 % (0.0-8.0); MONOCYTE # 0.6 TH/MM3 (0-0.9); NEUT % 51.8 % (16.0-70.0); PLATELET COUNT 178 TH/MM3 (150-450); RED BLOOD COUNT 4.69 MIL/MM3 (4.00-5.30); RED CELL DISTRIBUTION WIDTH 13.4 % (11.6-17.2); WHITE BLOOD COUNT 5.2 TH/MM3 (4.0-11.0)
[2017-12-26 10:26] LABS: ALKALINE PHOSPHATASE 60 U/L (45-117); ALT (GPT) 17 U/L (10-53); AST (GOT) 6 U/L (15-37); BICARBONATE 26.3 MEQ/L (21.0-32.0); BLOOD UREA NITROGEN 21 MG/DL (7-18); CALCIUM 9.8 MG/DL (8.5-10.1); CHLORIDE 103 MEQ/L (98-107); CREATININE 0.52 MG/DL (0.50-1.00); FREE T4 1.44 NG/DL (0.76-1.46); GLOMERULAR FILTRATION RATE 145 ML/MIN (>89); GLUCOSE,RANDOM 84 MG/DL (74-106); MAGNESIUM 1.8 MG/DL (1.5-2.5); PHOSPHORUS 4.4 MG/DL (2.5-4.9); SODIUM (NA) 139 MEQ/L (136-145); TOTAL BILIRUBIN ADULT 0.2 MG/DL (0.2-1.0); TOTAL PROTEIN 7.3 GM/DL (6.4-8.2)
[2017-12-26 11:55] LABS: HEMOGLOBIN A1C 5.1 % (4.3-6.0)
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
[2017-12-26] MEDS ORDERED: PILL SPLITTER OTHER PRN (16:00)
--- NOTE | 2017-12-26 16:19 | HHI.PYPN ---
Subjective Remarks Patient was seen and case discussed with nursing. Patient is disheveled in blunted with psychomotor retardation. Insight is poor and there appeared to be cognitive deficits. She continues to have auditory hallucinations telling her to hurt herself. She has fleeting suicidal thoughts no intent or plan Mental Status Examination Appearance: Disheveled Consciousness: Alert Orientation: x4 Motor Activity: Normal gait Speech: Unremarkable Language: Adequate Fund of Knowledge: Adequate Attention and Concentration: Adequate Memory: Unremarkable Mood: Sad Affect: Sad, Other (Tearful) Thought Process & Associations: Intact Thought Content: Appropriate Hallucination Type: Auditory (Command auditory hallucinations to kill herself) Delusion Type: None Suicidal Ideation: Yes (fleeting) Suicidal Plan: No Suicidal Intention: No Homicidal Ideation: No Homicidal Plan: No Homicidal Intention: No Insight: Poor Judgment: Poor Results Labs Test 12/26/17 09:07 White Blood Count 5.2 TH/MM3 Red Blood Count 4.69 MIL/MM3 Hemoglobin 13.4 GM/DL Hematocrit 39.4 % Mean Corpuscular Volume 83.9 FL Mean Corpuscular Hemoglobin 28.6 PG Mean Corpuscular Hemoglobin Concent 34.0 % Red Cell Distribution Width 13.4 % Platelet Count 178 TH/MM3 Mean Platelet Volume 9.6 FL Neutrophils (%) (Auto) 51.8 % Lymphocytes (%) (Auto) 35.5 % Monocytes (%) (Auto) 11.7 % Eosinophils (%) (Auto) 0.5 % Basophils (%) (Auto) 0.5 % Neutrophils # (Auto) 2.7 TH/MM3 Lymphocytes # (Auto) 1.9 TH/MM3 Monocytes # (Auto) 0.6 TH/MM3 Eosinophils # (Auto) 0.0 TH/MM3 Basophils # (Auto) 0.0 TH/MM3 CBC Comment DIFF FINAL Differential Comment Blood Urea Nitrogen 21 MG/DL Creatinine 0.52 MG/DL Random Glucose 84 MG/DL Total Protein 7.3 GM/DL Albumin 4.0 GM/DL Calcium Level 9.8 MG/DL Phosphorus Level 4.4 MG/DL Magnesium Level 1.8 MG/DL Alkaline Phosphatase 60 U/L Aspartate Amino Transf (AST/SGOT) 6 U/L Alanine Aminotransferase (ALT/SGPT) 17 U/L Total Bilirubin 0.2 MG/DL Sodium Level 139 MEQ/L Potassium Level 4.1 MEQ/L Chloride Level 103 MEQ/L Carbon Dioxide Level 26.3 MEQ/L Anion Gap 10 MEQ/L Estimat Glomerular Filtration Rate 145 ML/MIN Hemoglobin A1c 5.1 % Free Thyroxine 1.44 NG/DL Thyroid Stimulating Hormone 3rd Gen LESS THAN 0.005 uIU/ML Vitals/IOs Vital Signs Date Time Temp Pulse Resp B/P (MAP) Pulse Ox O2 Delivery O2 Flow Rate FiO2 12/26/17 06:20 98.3 86 18 96/65 (75) 97 12/23/17 06:48 Room Air Assessment & Plan Problem List: (1) Schizophrenia ICD Codes: F20.9 - Schizophrenia, unspecified Status: Acute Assessment & Plan Continue current treatment plan Justification for Cont. Inpt. Patient will decompensate in a less restrictive setting Carlos Newby DO Dec 26, 2017 16:19
[2017-12-26] MEDS: ACETAMINOPHEN/CODEINE 300 MG/30 MG TAB PO PRN (17:44)
[2017-12-26 18:41] VITALS: BP 103/69; PULSE 98; RESP 18; TEMP 97.3; O2SAT 97
[2017-12-26] MEDS: cloZAPine 100 MG TAB PO SCH (20:58)
[2017-12-26] MEDS: REMOVE OLD NICODERM (NICOTINE) PATCH T-DERMAL SCH (20:59)
[2017-12-26] MEDS: METHOCARBAMOL 500 MG TAB PO SCH (21:01)
[2017-12-27 06:20] VITALS: BP 94/52; PULSE 104; RESP 17; TEMP 97.5; O2SAT 100
[2017-12-27] MEDS: METHOCARBAMOL 500 MG TAB PO SCH ×4 (06:28→22:24)
[2017-12-27] MEDS: LEVOTHYROXINE SODIUM 25 MCG TAB PO SCH (06:28)
[2017-12-27] MEDS: INSULIN ASPART SUPPLEMENTAL SCALE SQ SCH ×4 (08:00→21:00)
[2017-12-27] MEDS: OXcarbazepine 150 MG TAB PO SCH ×2 (09:05→20:02)
[2017-12-27] MEDS: LIOTHYRONINE SODIUM 25 MCG TAB PO SCH (09:05)
[2017-12-27] MEDS: ACETAMINOPHEN/CODEINE 300 MG/30 MG TAB PO PRN ×2 (09:06→15:20)
[2017-12-27] MEDS: clonazePAM 1 MG TAB PO SCH ×3 (09:06→18:16)
[2017-12-27] MEDS: ATENOLOL 50 MG TAB PO SCH ×2 (09:07→21:00)
[2017-12-27] MEDS: metFORMIN HCL 500 MG TAB PO SCH ×2 (09:08→17:08)
[2017-12-27] MEDS: RIVASTIGMINE 9.5 MG/24 HOUR PATCH T-DERMAL SCH (09:10)
[2017-12-27] MEDS: NICOTINE 21 MG/24 HR PATCH T-DERMAL SCH (09:12)
[2017-12-27] MEDS: DEXTROAMPHETAMINE/AMPHETAMINE 10 MG TAB PO SCH ×2 (10:43→15:20)
[2017-12-27] MEDS: ACETAMINOPHEN 325 MG TAB PO PRN (12:00)
--- NOTE | 2017-12-27 13:24 | HHI.PYPN ---
Subjective Remarks Patient was seen and case discussed with nursing. Today patient is complaining of persistent auditory hallucinations telling her to hurt herself. She is able to ignore them but they are intrusive. She denies any intent or plan of doing so in the hospital. Mood is "depressed." Patient is perseverative on Trileptal. Eating well. Social with others Mental Status Examination Appearance: Disheveled Consciousness: Alert Orientation: x4 Motor Activity: Normal gait Speech: Unremarkable Language: Adequate Fund of Knowledge: Adequate Attention and Concentration: Adequate Memory: Unremarkable Mood: Sad Affect: Sad, Other (Tearful) Thought Process & Associations: Intact Thought Content: Appropriate Hallucination Type: Auditory (Command auditory hallucinations to kill herself) Delusion Type: None Suicidal Ideation: Yes (fleeting) Suicidal Plan: No Suicidal Intention: No Homicidal Ideation: No Homicidal Plan: No Homicidal Intention: No Insight: Poor Judgment: Poor Results Vitals/IOs Vital Signs Date Time Temp Pulse Resp B/P (MAP) Pulse Ox O2 Delivery O2 Flow Rate FiO2 12/27/17 06:20 97.5 104 17 94/52 (66) 100 Assessment & Plan Problem List: (1) Schizophrenia ICD Codes: F20.9 - Schizophrenia, unspecified Status: Acute Assessment & Plan Patient is on a high dose of Clozaril consider increasing slightly Justification for Cont. Inpt. Patient would decompensate in a less restrictive setting Carlos Newby DO Dec 27, 2017 13:24
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
[2017-12-27] MEDS: POLYETHYLENE GLYCOL 17 GM PKG PO SCH (15:50)
[2017-12-27] MEDS ORDERED: LIOTHYRONINE SODIUM 25 MCG TAB PO SCH (18:00)
[2017-12-27 18:24] VITALS: PULSE 91; RESP 17; TEMP 97.6; O2SAT 100
[2017-12-27] MEDS: DOCUSATE SODIUM 50 MG/SENNA 8.6 MG TAB PO SCH (20:02)
[2017-12-27] MEDS: cloZAPine 100 MG TAB PO SCH (20:03)
--- NOTE | 2017-12-27 20:52 | HHI.PR ---
Subjective Remarks NOT SEEN Objective Vitals Vital Signs Date Time Temp Pulse Resp B/P (MAP) Pulse Ox O2 Delivery O2 Flow Rate FiO2 12/27/17 18:24 97.6 91 17 100 12/27/17 06:20 97.5 104 17 94/52 (66) 100 Result Diagram: 12/26/1790612/26/17 09 Objective Remarks GENERAL: This is a very thin appearing cachectic young female who is not a well- developed patient, in no apparent distress. SKIN: No rashes, ecchymoses or lesions. Cool and dry. HEAD: Atraumatic. Normocephalic. No temporal or scalp tenderness. EYES: Pupils equal round and reactive. Extraocular motions intact. No scleral icterus. No injection or drainage. ENT: Nose without bleeding, purulent drainage or septal hematoma. Throat without erythema, tonsillar hypertrophy or exudate. Uvula midline. Airway patent. NECK: Trachea midline. No JVD or lymphadenopathy. Supple, nontender, no meningeal signs. CARDIOVASCULAR: Regular rate and rhythm without murmurs, gallops, or rubs. S1- S2 no S3 or S4 RESPIRATORY: Clear to auscultation. Breath sounds equal bilaterally. No wheezes , rales, or rhonchi. GASTROINTESTINAL: Abdomen soft, non-tender, nondistended. No guarding. MUSCULOSKELETAL: Extremities without clubbing, cyanosis, or edema. No joint tenderness, effusion, or edema noted. No calf tenderness. Negative Homans sign bilaterally. NEUROLOGICAL: Awake and alert. Cranial nerves II through XII intact. Motor and sensory grossly within normal limits. Five out of 5 muscle strength in all muscle groups. Normal speech. Procedures NONE A/P Problem List: (1) Schizophrenia ICD Code: F20.9 - Schizophrenia, unspecified Status: Acute (2) Abnormal TSH ICD Code: R79.89 - Other specified abnormal findings of blood chemistry Status: Acute (3) Adjustment disorder with mixed disturbance of emotions and conduct ICD Code: F43.25 - Adjustment disorder with mixed disturbance of emotions and conduct (4) Hypothyroidism ICD Code: E03.9 - Hypothyroidism, unspecified Status: Chronic (5) DM2 (diabetes mellitus, type 2) ICD Code: E11.9 - Type 2 diabetes mellitus without complications Status: Chronic (6) Generalized anxiety disorder ICD Code: F41.1 - Generalized anxiety disorder Status: Acute (7) Schizoaffective disorder ICD Code: F25.9 - Schizoaffective disorder, unspecified Status: Acute (8) DM (diabetes mellitus) ICD Code: E11.9 - Diabetes mellitus Status: Acute Assessment and Plan N[place]ez act with history of suicidal ideation and multiple suicide attempts in the past Hypertension per history continue home medications Hypothyroidism continue on current medications Diabetes mellitus/PCOS continue on sliding scale coverage and Accu-Cheks before meals and at bedtime as well as diabetic diet Anorexia encourage oral intake Multiple food allergies continue with oral intake History of traumatic brain injury due to previous suicide attempt Chronic pain on meds and muscle relaxerslaxatives Chronic constipation. Stool softener, home meds nonformulary Josue Jorge MD Dec 27, 2017 20:52
[2017-12-27 21:00] VITALS: BP 117/71; PULSE 95; O2SAT 100
[2017-12-27] MEDS: REMOVE OLD NICODERM (NICOTINE) PATCH T-DERMAL SCH (21:00)
[2017-12-27] MEDS ORDERED: DOCUSATE SODIUM 100 MG CAP PO SCH (21:00)
[2017-12-28] MEDS: METHOCARBAMOL 500 MG TAB PO SCH ×3 (06:00→21:22)
[2017-12-28] MEDS: LEVOTHYROXINE SODIUM 25 MCG TAB PO SCH (06:23)
[2017-12-28 06:39] VITALS: BP 106/66; PULSE 77; RESP 18; TEMP 97.9; O2SAT 0
[2017-12-28] MEDS: INSULIN ASPART SUPPLEMENTAL SCALE SQ SCH ×4 (06:52→21:00)
[2017-12-28] MEDS: RIVASTIGMINE 9.5 MG/24 HOUR PATCH T-DERMAL SCH (09:00)
[2017-12-28] MEDS: DEXTROAMPHETAMINE/AMPHETAMINE 10 MG TAB PO SCH ×2 (09:00→15:57)
[2017-12-28] MEDS: LIOTHYRONINE SODIUM 5 MCG TAB PO SCH ×2 (09:00→12:51)
[2017-12-28] MEDS: NICOTINE 21 MG/24 HR PATCH T-DERMAL SCH (09:00)
[2017-12-28] MEDS: clonazePAM 1 MG TAB PO SCH ×3 (09:30→18:38)
[2017-12-28] MEDS: OXcarbazepine 150 MG TAB PO SCH ×2 (09:31→21:21)
[2017-12-28] MEDS: metFORMIN HCL 500 MG TAB PO SCH ×2 (09:31→18:38)
[2017-12-28] MEDS: DOCUSATE SODIUM 50 MG/SENNA 8.6 MG TAB PO SCH ×2 (09:31→21:21)
[2017-12-28] MEDS: ATENOLOL 50 MG TAB PO SCH ×2 (09:31→21:00)
[2017-12-28] MEDS: POLYETHYLENE GLYCOL 17 GM PKG PO SCH (09:31)
[2017-12-28] MEDS: ACETAMINOPHEN/CODEINE 300 MG/30 MG TAB PO PRN ×4 (11:01→21:26)
--- NOTE | 2017-12-28 13:58 | HHI.PYPN ---
Subjective Remarks Reviewed electronic medical record, labs, and discussed case with staff. Follow -up evaluation performed in patient's room with nurse present. Her appearance is disheveled. Speech is rapid low-volume. Her mood is depressed and her affect is flat. She complains of persistent auditory hallucinations and states that they keep telling her to hurt herself. She advises that she "feels really bad". She reports her sleep is fair stating that she has been having nightmares. Additionally, she reports is her appetite is fair. She endorses suicidal ideation due to command auditory hallucinations, and reports "seeing spiders" when she feels anxious. Her behavior with this provider is manipulative and throughout the interview she tries to dictate which medications and how many milligrams she should be on. Mental Status Examination Appearance: Disheveled Consciousness: Alert Orientation: x4 Motor Activity: Normal gait Speech: Unremarkable Language: Adequate Fund of Knowledge: Adequate Attention and Concentration: Adequate Memory: Unremarkable Mood: Sad Affect: Sad, Flat Thought Process & Associations: Intact Thought Content: Appropriate Hallucination Type: Auditory (Command auditory hallucinations to kill herself) , Visual (Spiders when anxious) Delusion Type: None Suicidal Ideation: Yes (fleeting) Suicidal Plan: No Suicidal Intention: No Homicidal Ideation: No Homicidal Plan: No Homicidal Intention: No Insight: Poor Judgment: Poor Results Vitals/IOs Vital Signs Date Time Temp Pulse Resp B/P (MAP) Pulse Ox O2 Delivery O2 Flow Rate FiO2 12/28/17 06:39 97.9 77 18 106/66 (79) 0 Assessment & Plan Problem List: (1) Schizophrenia ICD Codes: F20.9 - Schizophrenia, unspecified Status: Acute Assessment & Plan Estimated LOS: Continue with treatment plan and review current medication regimen until patient has psychiatrically stabilized. Patient continues to endorse suicidal ideation as well as visual and auditory hallucinations. Justification for Cont. Inpt. Moving this patient to a lower level of care would likely result in decompensation at this time. Kisha Esquivel Dec 28, 2017 13:58
--- NOTE | 2017-12-28 16:14 | HHI.PR ---
Subjective Remarks Follow-up visit Abnormal TSH. Patient seen and examined today. Patient reports she has been constipated and needs to be at her Linzess. Discussed with patient that it is a nonformulary medication if somebody from home and bring it will be happy to give her her Linzess. States that she will be okay if we give her lactulose daily. Discussed with patient results of her TSH and that we need to adjust her medication. States that she is being followed by hem inspector. She could not remember today of the hem inspector. Patient also states that she is a employee relation manager for antiphospholipid syndrome. She could not confirm what the name of her employee relation manager. States she does not know if she is going to start blood thinner but when asked if the employee relation manager gave her blood thinner patient says "no she gave me oxycodone." Patient is asking if I could give her oxycodone. Denies SOB/ dyspnea. Denies chest pain, palpitations, headaches, dizziness. Denies fevers, chills, n/ v/d. Denies hematuria, dysuria. [employer] Dr. Lainez in [place] ([phone]) Objective Vitals Vital Signs Date Time Temp Pulse Resp B/P (MAP) Pulse Ox O2 Delivery O2 Flow Rate FiO2 12/28/17 06:39 97.9 77 18 106/66 (79) 0 12/27/17 21:00 95 117/71 (86) 100 12/27/17 18:24 97.6 91 17 100 Result Diagram: 12/26/17 0907 12/26/17 0907 Objective Remarks GENERAL: This is a thin appearing, appears older than stated age, in no apparent distress. SKIN: Warm and dry. HEENT: Normocephalic. Pupils equal round and reactive. Nose without bleeding. Airway patent. NECK: Trachea midline. CARDIOVASCULAR: Tachycardia without murmurs, gallops, or rubs. RESPIRATORY: Clear to auscultation. Breath sounds equal bilaterally. No wheezes , rales, or rhonchi. GASTROINTESTINAL: Abdomen soft, non-tender, nondistended. Bowel Sounds hypoactive MUSCULOSKELETAL: Extremities without clubbing, cyanosis, or edema. NEUROLOGICAL: Awake and alert. Oriented to place, person. No focal neuro deficit. Moves all extremities. Normal speech. Procedures NONE A/P Problem List: (1) Schizophrenia ICD Code: F20.9 - Schizophrenia, unspecified Status: Acute (2) Abnormal TSH ICD Code: R79.89 - Other specified abnormal findings of blood chemistry Status: Acute (3) Adjustment disorder with mixed disturbance of emotions and conduct ICD Code: F43.25 - Adjustment disorder with mixed disturbance of emotions and conduct (4) Hypothyroidism ICD Code: E03.9 - Hypothyroidism, unspecified Status: Chronic (5) DM2 (diabetes mellitus, type 2) ICD Code: E11.9 - Type 2 diabetes mellitus without complications Status: Chronic (6) Generalized anxiety disorder ICD Code: F41.1 - Generalized anxiety disorder Status: Acute (7) Schizoaffective disorder ICD Code: F25.9 - Schizoaffective disorder, unspecified Status: Acute (8) DM (diabetes mellitus) ICD Code: E11.9 - Diabetes mellitus Status: Acute Assessment and Plan 22-year-old female who came into the hospital under Núñez act secondary to suicidal ideation, multiple suicide attempts in the past. Suicidal ideation, depression, schizophrenia, schizoaffective disorder -Managed by psychiatry team ADD Anxiety Tachycardia -Possibly tachycardias drug-induced patient is on multiple medications including Adderall -Continue atenolol. Patient states she has been on atenolol to control the tachycardia Hypothyroidism Abnormal TSH level -Patient follows endocrinology at [place] Dr. Lainez ([phone]) -Recent TSH showed 0.005, less than 0.005 -Dr. Jorge spoke with hem inspector, and states that the patient is a wound who keeps on insisting to be on Cytomel 3 times daily. Recommend to discontinue Cytomel and keep patient on levothyroxine daily. They will follow in the outpatient setting -DC Cytomel for now. Continue levothyroxine 25 mcg daily. -TSH, T3, T4 in 2 weeks. PCOS -Patient reports borderline diabetes also. On metformin 1000 mg twice daily. -Continue for now follow-up with endocrinology Chronic pain -Patient continues to ask for oxycodones and other pain medications. Continue with muscle relaxants for now -Does not appear to be in severe pain. Chronic constipation -Administer Linzess if available. Lactulose daily for now, MiraLAX daily. Patient now states she has antiphospholipid syndrome and needs to be on anticoagulants. However when further evaluated, patient states that nobody has placed her on any anticoagulants and she was only given oxycodones by the employee relation manager. We will not start any anticoagulant for the patient she could get a workup as an outpatient. She appears to have somatization. Requesting for more medications. DVT prop ambulatory Tyrone Hernandez Dec 28, 2017 4:14 pm
[2017-12-28] MEDS: LACTULOSE SYRUP 20 GM/30 ML CUP PO SCH (16:34)
[2017-12-28 17:00] VITALS: BP 97/61; PULSE 102; RESP 18; TEMP 98.3; O2SAT 100
[2017-12-28] MEDS: REMOVE OLD NICODERM (NICOTINE) PATCH T-DERMAL SCH (21:00)
[2017-12-28] MEDS: cloZAPine 100 MG TAB PO SCH (21:21)
[2017-12-29] MEDS: METHOCARBAMOL 500 MG TAB PO SCH ×4 (06:10→22:28)
[2017-12-29] MEDS: LEVOTHYROXINE SODIUM 25 MCG TAB PO SCH (06:10)
[2017-12-29 06:25] VITALS: BP 95/59; PULSE 85; RESP 18; TEMP 96.6; O2SAT 85
[2017-12-29] MEDS: INSULIN ASPART SUPPLEMENTAL SCALE SQ SCH ×4 (08:00→20:45)
[2017-12-29] MEDS: NICOTINE 21 MG/24 HR PATCH T-DERMAL SCH (09:00)
[2017-12-29] MEDS: REMOVE OLD NICODERM (NICOTINE) PATCH T-DERMAL SCH (09:00)
[2017-12-29] MEDS: DOCUSATE SODIUM 50 MG/SENNA 8.6 MG TAB PO SCH ×2 (09:00→20:45)
[2017-12-29] MEDS: DEXTROAMPHETAMINE/AMPHETAMINE 10 MG TAB PO SCH ×2 (09:00→15:00)
[2017-12-29] MEDS: POLYETHYLENE GLYCOL 17 GM PKG PO SCH (09:00)
[2017-12-29] MEDS: LACTULOSE SYRUP 20 GM/30 ML CUP PO SCH (09:00)
[2017-12-29] MEDS: RIVASTIGMINE 9.5 MG/24 HOUR PATCH T-DERMAL SCH (09:00)
[2017-12-29] MEDS: clonazePAM 1 MG TAB PO SCH ×3 (09:00→17:45)
[2017-12-29] MEDS: metFORMIN HCL 500 MG TAB PO SCH ×2 (09:00→17:45)
[2017-12-29] MEDS: ATENOLOL 50 MG TAB PO SCH ×2 (09:00→20:45)
[2017-12-29] MEDS ORDERED: LIOTHYRONINE SODIUM 5 MCG TAB PO SCH (09:00)
[2017-12-29] MEDS: OXcarbazepine 150 MG TAB PO SCH ×2 (09:00→20:45)
[2017-12-29] MEDS: ACETAMINOPHEN/CODEINE 300 MG/30 MG TAB PO PRN (09:00)
[2017-12-29] MEDS: ACETAMINOPHEN 325 MG TAB PO PRN (13:15)
--- NOTE | 2017-12-29 14:06 | HHI.PYPN ---
Subjective Remarks Reviewed medical record and discussed case with staff. Patient found in group activity and evaluated in exam room. Patient reports that she slept "okay" and ate her breakfast. She states that she is still having nightmares, having command auditory hallucinations, and still feels depressed. She advises that she would like to be discharged, commenting "if you all aren't going to help me I want to go home". Her mood is sad and irritable at times. Her Clozaril level is pending. EKG showed a conduction delay. Consulted with Dr. Morgan who will be taking over this patient's care. Mental Status Examination Appearance: Disheveled Consciousness: Alert Orientation: x4 Motor Activity: Normal gait Speech: Unremarkable Language: Adequate Fund of Knowledge: Adequate Attention and Concentration: Adequate Memory: Unremarkable Mood: Sad, Irritable Affect: Sad, Flat Thought Process & Associations: Intact Thought Content: Appropriate Hallucination Type: Auditory (Command auditory hallucinations to kill herself) Delusion Type: None Suicidal Ideation: Yes (fleeting) Suicidal Plan: No Suicidal Intention: No Homicidal Ideation: No Homicidal Plan: No Homicidal Intention: No Insight: Poor Judgment: Poor Results Labs Test 12/28/17 17:29 Vitals/IOs Vital Signs Date Time Temp Pulse Resp B/P (MAP) Pulse Ox O2 Delivery O2 Flow Rate FiO2 12/29/17 06:25 96.6 85 18 95/59 (71) 85 Assessment & Plan Problem List: (1) Schizophrenia ICD Codes: F20.9 - Schizophrenia, unspecified Status: Acute Assessment & Plan Estimated LOS: Clozaril level pending. Discharge anticipated within the next few days. Justification for Cont. Inpt. Discharge planning progressing. Kisha Esquivel Dec 29, 2017 14:06
[2017-12-29 18:26] VITALS: BP 93/52; PULSE 92; RESP 18; TEMP 98.4; O2SAT 98
--- NOTE | 2017-12-29 19:03 | EKG ---
Date Performed: 12/28/2017 Time Performed: 15:31:08 PTAGE: 22 years EKG: Sinus rhythm POSSIBLE RIGHT VENTRICULAR CONDUCTION DELAY BORDERLINE ECG Since the prior tracing, there has been n o significant change PREVIOUS TRACING : 04/20/2016 12.06 DOCTOR: Luis Houston Interpretating Date/Time 12/29/2017 19:02:24
[2017-12-29] MEDS: cloZAPine 100 MG TAB PO SCH (20:45)
[2017-12-30] MEDS: LEVOTHYROXINE SODIUM 25 MCG TAB PO SCH (06:00)
[2017-12-30] MEDS: INSULIN ASPART SUPPLEMENTAL SCALE SQ SCH ×4 (08:00→20:37)
[2017-12-30] MEDS: POLYETHYLENE GLYCOL 17 GM PKG PO SCH (09:00)
[2017-12-30] MEDS: DOCUSATE SODIUM 50 MG/SENNA 8.6 MG TAB PO SCH ×2 (09:00→20:29)
[2017-12-30] MEDS: DEXTROAMPHETAMINE/AMPHETAMINE 10 MG TAB PO SCH ×2 (09:00→13:54)
[2017-12-30] MEDS: clonazePAM 1 MG TAB PO SCH ×3 (09:00→18:00)
[2017-12-30] MEDS: OXcarbazepine 150 MG TAB PO SCH ×2 (09:00→20:29)
[2017-12-30] MEDS: ATENOLOL 50 MG TAB PO SCH ×2 (09:00→20:29)
[2017-12-30] MEDS: NICOTINE 21 MG/24 HR PATCH T-DERMAL SCH (09:00)
[2017-12-30] MEDS: metFORMIN HCL 500 MG TAB PO SCH ×2 (09:00→18:00)
[2017-12-30] MEDS: RIVASTIGMINE 9.5 MG/24 HOUR PATCH T-DERMAL SCH (09:00)
[2017-12-30] MEDS: LACTULOSE SYRUP 20 GM/30 ML CUP PO SCH (09:00)
--- NOTE | 2017-12-30 13:07 | HHI.PYPN ---
Subjective Remarks The patient was seen today for psychiatric reevaluation. Patient says that she feels much better, she says that she is no very happy to be here, she would prefer to be home. Denies anhedonia, denies hopelessness, denies helplessness, denies worthlessness, she denies suicidal ideation, denies homicidal ideation, she denies visual and auditory hallucinations. The patient is logical, she is coherent and relevant. Doesn't present any delusional ideas, paranoia, disorganized behavior or speech, ideas of reference, loosening of associations, agitation or aggressiveness. Compliant with medications, no significant side effects reported. Review of Systems Constitutional: DENIES: Diaphoretic episodes, Fatigue, Fever, Weight gain, Weight loss, Chills, Dizziness, Change in appetite, Night Sweats Endocrine: DENIES: Abnorml menstrual pattern, Heat/cold intolerance, Polydipsia , Polyuria, Polyphagia Eyes: DENIES: Blurred vision, Diplopia, Eye inflammation, Eye pain, Vision loss , Photosensitivity, Double Vision Ears, nose, mouth, throat: DENIES: Tinnitus, Hearing loss, Vertigo, Nasal discharge, Oral lesions, Throat pain, Hoarseness, Ear Pain, Running Nose, Epistaxis, Sinus Pain, Toothache, Odynophagia Respiratory: DENIES: Apneas, Cough, Snoring, Wheezing, Hemoptysis, Sputum production, Shortness of breath Cardiovascular: DENIES: Chest pain, Palpitations, Syncope, Dyspnea on Exertion , PND, Lower Extremity Edema, Orthopnea, Claudication Gastrointestinal: DENIES: Abdominal pain, Black stools, Bloody stools, Constipation, Diarrhea, Nausea, Vomiting, Difficulty Swallowing, Anorexia Genitourinary: DENIES: Abnormal vaginal bleeding, Dysmenorrhea, Dyspareunia, Sexual dysfunction, Urinary frequency, Urinary incontinence, Urgency, Hematuria , Dysuria, Nocturia, Vaginal discharge Musculoskeletal: DENIES: Joint pain, Muscle aches, Stiffness, Joint Swelling, Back pain, Neck pain Integumentary: DENIES: Abnormal pigmentation, Pruritus, Rash, Nail changes, Breast masses, Breast skin changes, Nipple discharge Hematologic/lymphatic: DENIES: Bruising, Lymphadenopathy Immunologic/allergic: DENIES: Eczema, Urticaria Neurologic: DENIES: Abnormal gait, Headache, Localized weakness, Paresthesias, Seizures, Speech Problems, Tremor, Poor Balance Psychiatric: DENIES: Anxiety, Confusion, Mood changes, Depression, Hallucinations, Agitation, Suicidal Ideation, Homicidal Ideation, Delusions Mental Status Examination Appearance: Appropriate Consciousness: Alert Orientation: x4 Motor Activity: Normal gait Speech: Unremarkable Language: Adequate Fund of Knowledge: Adequate Attention and Concentration: Adequate Memory: Unremarkable Mood: Sad, Irritable Affect: Sad, Flat Thought Process & Associations: Intact Thought Content: Appropriate Hallucination Type: Auditory (Command auditory hallucinations to kill herself) Delusion Type: None Suicidal Ideation: No Suicidal Plan: No Suicidal Intention: No Homicidal Ideation: No Homicidal Plan: No Homicidal Intention: No Insight: Fair Judgment: Impulsive Results Vitals/IOs Vital Signs Date Time Temp Pulse Resp B/P (MAP) Pulse Ox O2 Delivery O2 Flow Rate FiO2 12/29/17 18:26 98.4 92 18 93/52 (66) 98 Assessment & Plan Problem List: (1) Schizophrenia ICD Codes: F20.9 - Schizophrenia, unspecified Status: Acute Assessment & Plan: Patient shows good response to psychotropic regimen. No major acute psychiatric symptoms present at this moment. Continue current psychotropic regimen. Assessment & Plan Estimated LOS: days Justification for Cont. Inpt. Patient has an elevated risk to decompensate at a lower level of care. Malick Morgan MD Dec 30, 2017 13:07
[2017-12-30] MEDS: METHOCARBAMOL 500 MG TAB PO SCH ×2 (13:54→20:31)
[2017-12-30 17:16] VITALS: BP 110/72; PULSE 100; RESP 18; TEMP 99.1; O2SAT 98
[2017-12-30 18:20] VITALS: BP 117/64; PULSE 130; RESP 18; TEMP 99.4; O2SAT 97
--- NOTE | 2017-12-30 19:59 | RADRPT ---
EXAM DATE/TIME: 12/30/2017 19:15 [place] COMPARISON: No previous studies available for comparison. INDICATIONS : Vomiting. MEDICAL HISTORY : None. SURGICAL HISTORY : None. ENCOUNTER: Initial ACUITY: 1 day PAIN SCORE: 0/10 LOCATION: Bilateral abdomen. FINDINGS: Supine view of the abdomen was performed. The abdominal bowel gas pattern is normal. No abnormal ma sses, calcifications, or organomegaly is seen. The osseous structures are unremarkable. CONCLUSION: No dilated loops of small or large bowel. Bhavik Urbano MD on December 30, 2017 at 19:56 Board Certified Radiologist. This report was verified electronically.
[2017-12-30] MEDS: cloZAPine 100 MG TAB PO SCH (20:44)
[2017-12-30] MEDS: REMOVE OLD NICODERM (NICOTINE) PATCH T-DERMAL SCH (20:44)
[2017-12-30 21:50] VITALS: BP 92/61; PULSE 131; RESP 16; TEMP 99.2; O2SAT 98
[2017-12-30 22:04] LABS: BASOPHIL % 0.2 % (0.0-2.0); EOSINOPHIL % 0.1 % (0.0-4.0); HEMATOCRIT 39.3 % (35.0-46.0); HEMOGLOBIN 13.4 GM/DL (11.6-15.3); LYMPH % 2.8 % (9.0-44.0); LYMPHOCYTE # 0.5 TH/MM3 (1.0-4.8); MEAN CELL VOLUME 84.6 FL (80.0-100.0); MEAN CORPUSCULAR HEMOGLOBIN 28.9 PG (27.0-34.0); MEAN CORPUSCULAR HGB CONC 34.2 % (32.0-36.0); MEAN PLATELET VOLUME 9.8 FL (7.0-11.0); MONOCYTE # 0.9 TH/MM3 (0-0.9); NEUT % 91.9 % (16.0-70.0); PLATELET COUNT 171 TH/MM3 (150-450); RED BLOOD COUNT 4.64 MIL/MM3 (4.00-5.30); RED CELL DISTRIBUTION WIDTH 13.5 % (11.6-17.2); WHITE BLOOD COUNT 17.4 TH/MM3 (4.0-11.0)
[2017-12-30 22:30] VITALS: BP 92/61; PULSE 131
[2017-12-30 22:30] LABS: BICARBONATE 29.7 MEQ/L (21.0-32.0); CALCIUM 8.8 MG/DL (8.5-10.1); CREATININE 0.76 MG/DL (0.50-1.00)
[2017-12-30] MEDS: SODIUM CHLOR 0.9% 1000 ML INJ 1,000 ML IV SCH (23:51)
[2017-12-30 23:55] VITALS: BP 94/54; PULSE 119; RESP 17; TEMP 99.4; O2SAT 97
[2017-12-31 06:00] VITALS: BP 103/56; PULSE 113; RESP 15; TEMP 99.6; O2SAT 96
[2017-12-31] MEDS: LEVOTHYROXINE SODIUM 25 MCG TAB PO SCH (06:00)
[2017-12-31] MEDS: METHOCARBAMOL 500 MG TAB PO SCH (06:00)
[2017-12-31] MEDS: ACETAMINOPHEN/CODEINE 300 MG/30 MG TAB PO PRN (06:30)
[2017-12-31] MEDS: INSULIN ASPART SUPPLEMENTAL SCALE SQ SCH ×2 (07:01→12:00)
[2017-12-31] MEDS: RIVASTIGMINE 9.5 MG/24 HOUR PATCH T-DERMAL SCH (09:00)
[2017-12-31] MEDS: NICOTINE 21 MG/24 HR PATCH T-DERMAL SCH (09:00)
[2017-12-31] MEDS: ATENOLOL 50 MG TAB PO SCH (09:00)
[2017-12-31] MEDS: POLYETHYLENE GLYCOL 17 GM PKG PO SCH (09:35)
[2017-12-31] MEDS: DOCUSATE SODIUM 50 MG/SENNA 8.6 MG TAB PO SCH (09:35)
[2017-12-31] MEDS: metFORMIN HCL 500 MG TAB PO SCH (09:35)
[2017-12-31] MEDS: clonazePAM 1 MG TAB PO SCH (09:36)
[2017-12-31] MEDS: LACTULOSE SYRUP 20 GM/30 ML CUP PO SCH (09:36)
--- NOTE | 2017-12-31 10:19 | HHI.PR ---
Subjective Remarks Follow-up for vomiting Had a few episodes of vomiting last night. Still nauseated this morning but otherwise no vomiting. Hasn't had her breakfast yet. Mild suprapubic abdominal pain with occasional burning when she urinates. Afebrile overnight. No shortness of breath, cough, chest pain. Mild headache Objective Vitals Vital Signs Date Time Temp Pulse Resp B/P (MAP) Pulse Ox O2 Delivery O2 Flow Rate FiO2 12/31/17 06:00 99.6 113 15 103/56 (72) 96 12/30/17 23:55 99.4 119 17 94/54 (67) 97 12/30/17 22:30 131 92/61 (71) 12/30/17 21:50 99.2 131 16 92/61 (71) 98 12/30/17 18:20 99.4 130 18 117/64 (81) 97 12/30/17 17:16 99.1 100 18 110/72 (85) 98 I/O 12/30/17 12/30/17 12/30/17 12/31/17 12/31/17 12/31/17 07:00 15:00 23:00 07:00 15:00 23:00 Intake Total 480 ml Balance 480 ml Intake Oral 480 ml # Voids 1 Result Diagram: 12/30/17210512/30/172105 Objective Remarks Not in distress, sleepy, easily arousable [place] conjunctiva, PERRL, dry oral mucosa Regular rate and rhythm, no murmurs Clear breath sounds Abdomen, soft, mild suprapubic tenderness, no guarding, good bowel sounds No edema No focal neurologic deficits. Procedures NONE A/P Problem List: (1) Schizophrenia ICD Code: F20.9 - Schizophrenia, unspecified Status: Acute (2) Abnormal TSH ICD Code: R79.89 - Other specified abnormal findings of blood chemistry Status: Acute (3) Adjustment disorder with mixed disturbance of emotions and conduct ICD Code: F43.25 - Adjustment disorder with mixed disturbance of emotions and conduct (4) Hypothyroidism ICD Code: E03.9 - Hypothyroidism, unspecified Status: Chronic (5) DM2 (diabetes mellitus, type 2) ICD Code: E11.9 - Type 2 diabetes mellitus without complications Status: Chronic (6) Generalized anxiety disorder ICD Code: F41.1 - Generalized anxiety disorder Status: Acute (7) Schizoaffective disorder ICD Code: F25.9 - Schizoaffective disorder, unspecified Status: Acute (8) DM (diabetes mellitus) ICD Code: E11.9 - Diabetes mellitus Status: Acute Assessment and Plan This is 22-year-old female who came into the hospital under Núñez act secondary to suicidal ideation, multiple suicide attempts in the past. Suicidal ideation, depression, schizophrenia, schizoaffective disorder -Managed by psychiatry team, cleared psychiatrically for discharge. ADD Anxiety Tachycardia -Possibly tachycardias drug-induced patient is on multiple medications including Adderall -Continue atenolol. Presently, in sinus rhythm. Hypothyroidism Abnormal TSH level -Patient follows endocrinology at [place] Dr. Lainez ([phone]) -Recent TSH showed 0.005, less than 0.005 -Dr. Jorge spoke with bacteriology technician, and states that the patient is a wound who keeps on insisting to be on Cytomel 3 times daily. Recommend to discontinue Cytomel and keep patient on levothyroxine daily. They will follow in the outpatient setting -DC Cytomel for now. Continue levothyroxine 25 mcg daily. -TSH, T3, T4 in 2 weeks. PCOS -Patient reports borderline diabetes also. On metformin 1000 mg twice daily. -Continue for now follow-up with endocrinology Chronic pain -Patient continues to ask for oxycodones and other pain medications. Continue with muscle relaxants for now -Does not appear to be in severe pain. Chronic constipation -Administer Linzess if available. Lactulose daily for now, MiraLAX daily. Acute gastroenteritis- had episodes of vomiting last night, nauseated today, abdominal x-ray unremarkable. BMP unremarkable, positive for leukocytosis today. Hasn't had her breakfast. Would encourage diet, recheck CBC stat and urinalysis. Urinalysis from yesterday was within normal limits. No obvious source for leukocytosis other than possibly dehydration, will recheck. If patient tolerates her diet, will discharge. There was a Radha virus outbreak were patient originally was staying. Will treat symptomatically. Patient now states she has antiphospholipid syndrome and needs to be on anticoagulants. However when further evaluated, patient states that nobody has placed her on any anticoagulants and she was only given oxycodones by the microsoft application developer. We will not start any anticoagulant for the patient she could get a workup as an outpatient. She appears to have somatization. Requesting for more medications. DVT prop ambulatory Discharge Planning If patient is able to tolerate diet, will discharge today. If not, will transfer to [facility]. Problem Qualifiers (1) DM (diabetes mellitus): Carlos Valverde MD Dec 31, 2017 10:19
[2017-12-31] MEDS: SODIUM CHLOR 0.9% 1000 ML INJ 1,000 ML IV SCH (11:07)
[2017-12-31] MEDS ORDERED: ATEN50TA PO (11:39)
[2017-12-31] MEDS ORDERED: TRIL150T PO (11:39)
[2017-12-31] MEDS ORDERED: KLON2TAB PO (11:39)
[2017-12-31] MEDS ORDERED: CLOZ100T PO (11:39)
[2017-12-31] MEDS ORDERED: METF1000 PO (11:39)
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
[2017-12-31 11:49] LABS: AUTOMATED NEUTROPHIL # 7.1 TH/MM3 (1.8-7.7); BASOPHIL % 0.2 % (0.0-2.0); EOSINOPHIL % 0.1 % (0.0-4.0); HEMOGLOBIN 12.5 GM/DL (11.6-15.3); LYMPH % 16.7 % (9.0-44.0); LYMPHOCYTE # 1.6 TH/MM3 (1.0-4.8); MEAN CELL VOLUME 84.4 FL (80.0-100.0); MEAN CORPUSCULAR HEMOGLOBIN 29.4 PG (27.0-34.0); MEAN CORPUSCULAR HGB CONC 34.9 % (32.0-36.0); MEAN PLATELET VOLUME 9.7 FL (7.0-11.0); MONO % 9.5 % (0.0-8.0); MONOCYTE # 0.9 TH/MM3 (0-0.9); NEUT % 73.5 % (16.0-70.0); PLATELET COUNT 154 TH/MM3 (150-450); RED BLOOD COUNT 4.26 MIL/MM3 (4.00-5.30); RED CELL DISTRIBUTION WIDTH 13.7 % (11.6-17.2); WHITE BLOOD COUNT 9.7 TH/MM3 (4.0-11.0)
[2017-12-31 12:01] LABS: BACTERIA, URINE RARE /hpf; BILIRUBIN, URINE NEG (NEG); BLOOD, URINE NEG (NEG); GLUCOSE,URINE NEG (NEG); KETONE, URINE NEG (NEG); MUCUS URINE FEW /lpf (OCC); NITRITE,URINE NEG (NEG); PH, URINE 7.5 (5.0-8.5); SQUAMOUS EPITHELIAL CELL URINE 2 /hpf (0-5); URINE COLOR YELLOW (YELLW/STRAW); URINE LEUKOCYTE ESTERASE NEG (NEG)
[2017-12-31] MEDS: DEXTROAMPHETAMINE/AMPHETAMINE 10 MG TAB PO SCH (12:37)
[2017-12-31] MEDS: OXcarbazepine 150 MG TAB PO SCH (12:37)
== END 2017-12-31 14:40 | disposition home or self-care (01) | DRG 885 ==
LOC: NEPD 19:09 → NEDA 12-23 08:29 → H270 12-23 12:15 → H4EA 12-30 21:59
PROVIDERS: ADMIT Psychiatry & Neurology Psychiatry; ATTEND Psychiatry & Neurology Psychiatry
DX: F20.9 Schizophrenia, unspecified (principal); R64 Cachexia; Z68.1 Body mass index [BMI] 19.9 or less, adult; E11.9 Type 2 diabetes mellitus without complications; Z79.84 Long term (current) use of oral hypoglycemic drugs; E28.2 Polycystic ovarian syndrome; R63.0 Anorexia; I10 Essential (primary) hypertension; E03.9 Hypothyroidism, unspecified; G89.29 Other chronic pain; K59.00 Constipation, unspecified; Z87.820 Personal history of traumatic brain injury; Z81.8 Family history of other mental and behavioral disorders
CPT/HCPCS: 74018; 80048; 80053; 80061; 80159; 80307; 81001; 82948; 83036; 83735; 84100; 84439; 84443; 84702; 85025; 93005; 96360; 96361; G0480; J1815; J7030